=== PATIENT | female | born 1985 | race Caucasian/White ===

== ENCOUNTER 2017-03-22 11:16 | Inpatient (IN) | payer BC, OTHER ==
[2017-03-22 12:20] VITALS: BMI 20.9
--- NOTE | 2017-03-22 12:51 | HP ---
CIWA Score - CIWA Score Nausea/Vomitin Muscle Tremors: 3 Anxiety: 3 Agitation: 3 Paroxysmal Sweats: 2 Orientation: 0-Oriented Tacttile Disturbances: 2-Mild Itch/Numbness/Burn Auditory Disturbances: 2-Mild Harshness/Frighten Visual Disturbances: 0-None Headache: 2-Mild CIWA-Ar Total Score: 20 Admission ROS BHS - HPI Chief Complaint: i need help to stop drinking alcohol Allergies/Adverse Reactions: Allergies Allergy/AdvReac Type Severity Reaction Status Date / Time No Known Allergies Allergy Verified 03/22/17 12:21 History of Present Illness: this 32 years old female with alcohol dependence,seeking detox,with withdrawal symptom,[place]17 drug over dose 02/08/17 herpes of valtrex fx of right elbow s/p surgery on 01/02/17 at [facility] weight loss ptsd,anxiety and depression - Ebola screening Have you traveled outside of the country in the last 21 days: No Have you had contact with anyone from an Ebola affected area: No Have you been sick,other than usual withdrawal symptoms: No - Review of Systems Constitutional: Loss of Appetite, Malaise, Night Sweats, Changes in sleep, Weakness, Unintentional Wgt. Loss EENT: reports: Tearing, Nose Congestion Respiratory: reports: Other (asthma) Cardiac: reports: No Symptoms Reported GI: reports: Diarrhea, Nausea, Abdominal cramping : reports: No Symptoms Reported Musculoskeletal: reports: Back Pain, Muscle Pain Integumentary: reports: Dryness Neuro: reports: Headache, Tremors Endocrine: reports: No Symptoms Reported Hematology: reports: Anemia (on iron) Psychiatric: reports: Depressed (ptsd,anxiety,depression,insomnia) Patient History - Patient Medical History Hx Anemia: Yes (on iron) Hx Asthma: Yes Hx Chronic Obstructive Pulmonary Disease (COPD): No Hx Cancer: No Hx Cardiac Disorders: No Hx Congestive Heart Failure: No Hx Hypertension: No Hx Hypercholesterolemia: No Hx Pacemaker: No HX Cerebrovascular Accident: No Hx Seizures: No Hx Diabetes: No Hx Gastrointestinal Disorders: No Hx Liver Disease: No Hx Genitourinary Disorders: No Hx Sexually Transmitted Disorders: No (genital herpes in the past) Hx Renal Disease (ESRD): No Hx Thyroid Disease: No Hx Human Immunodeficiency Virus (HIV): No (last 2016 negative) Hx Hepatitis C: No Hx Depression: Yes (anxiety) Hx Suicide Attempt: No Hx Bipolar Disorder: No Hx Schizophrenia: No Other Medical History: ptsd,insomnia,no suicidal,no homicidal - Patient Surgical History Past Surgical History: Yes Hx Abdominal Surgery: Yes (ELECTIVE ) Hx Orthopedic Surgery: Yes (R elbow sx 01/04/17) Other Surgical History: Lasix sx both eyes in 06/28 Anesthesia Reaction: No - PPD History Previous Implant?: Yes Documented Results: Negative w/o proof Implanted On Prior [facility] Admission?: No PPD to be Administered?: Yes - Reproductive History Patient is a Female of Child Bearing Age (11 -55 yrs old): Yes Last Menstrual Period: 03/21/17 Patient : No - Smoking Cessation Smoking history: Current every day smoker Have you smoked in the past 12 months: Yes Aproximately how many cigarettes per day: 10 Hx Chewing Tobacco Use: No Initiated information on smoking cessation: Yes 'Breaking Loose' booklet given: 03/22/17 - Substances Abused Alcohol Route: Oral Frequency: Daily Amount used: 2 pints vodka Age of first use: 26 Date of Last Use: 03/22/17 Cocaine Route: Injection Frequency: 1-3 times last 30 days Amount used: $40 Age of first use: 24 Date of Last Use: 03/12/17 Heroin Route: Injection Frequency: 1-3 times last 30 days Amount used: 3 bags Age of first use: 28 Date of Last Use: 03/13/17 Family Disease History - Family Disease History Family Disease History: Other: Father (alcohol) Admission Physical Exam BHS - Vital Signs Vital Signs: Vital Signs - 24 hr 03/22/17 12:18 Temperature 97.6 F Pulse Rate 93 H Respiratory 16 Rate Blood Pressure 133/84 - Physical General Appearance: Yes: Moderate Distress, Tremorous, Irritable, Sweating, Anxious HEENTM: Yes: Normal ENT Inspection, IVY, Pharynx Normal Respiratory: Yes: Lungs Clear, Normal Breath Sounds, No Respiratory Distress Neck: Yes: Within Normal Limits, Supple, Trachea in good position Breast: Yes: Breast Exam Deferred Cardiology: Yes: Within Normal Limits, Regular Rhythm, Regular Rate, S1, S2 Abdominal: Yes: Within Normal Limits, Normal Bowel Sounds, Non Tender, Flat, Soft Genitourinary: Yes: Within Normal Limits Back: Yes: Muscle Spasm Musculoskeletal: Yes: Back pain, Muscle Pain, Other (scar in right elbow with limitatation on meovement) Extremities: Yes: Tremors, Other (scar in right elbow with limitation on movement) Neurological: Yes: Motor Strength 5/5, Normal Mood/Affect Integumentary: Yes: Dry Lymphatic: Yes: Within Normal Limits - Diagnostic (1) Alcohol dependence with uncomplicated withdrawal Current Visit: Yes Status: Acute (2) Cocaine abuse Current Visit: Yes Status: Acute (3) Heroin abuse Current Visit: Yes Status: Acute (4) Syncope Current Visit: Yes Status: Acute (5) Nicotine dependence Current Visit: Yes Status: Chronic (6) Weight loss Current Visit: Yes Status: Acute (7) Hx of herpes genitalis Current Visit: Yes Status: Acute (8) PTSD (post-traumatic stress disorder) Current Visit: Yes Status: Chronic Comment: Self reports. (9) Insomnia secondary to depression with anxiety Current Visit: Yes Status: Acute (10) Anemia Current Visit: Yes Status: Acute (11) Asthma Current Visit: Yes Status: Acute Cleared for Admission [facility] - Detox or Rehab [facility] Level of Care: Medically Managed Detox Regimen/Protocol: Librium [facility] Breath Alcohol Content Breath Alcohol Content: 0.155 Urine Pregancy Test - Result Urine Test Results: Negative- NO Line Present Urine Drug Screen - Results Drug Screen Negative: Yes
[2017-03-22] MEDS ORDERED: NICOTINE POLACRILEX 2 MG GUM BUC PRN (13:06)
[2017-03-22] MEDS ORDERED: ACETAMINOPHEN 325 MG TABLET (FP) PO PRN (13:06)
[2017-03-22] MEDS ORDERED: MAGNESIUM HYDROX 2400MG/30ML ORAL SUSPENSION 30 ML CUP PO PRN (13:06)
[2017-03-22] MEDS ORDERED: MENTHOL/PHENOL 1 EACH UD MM PRN (13:06)
[2017-03-22] MEDS ORDERED: MAG HYDROX/AL HYDROX/SIMETH 30 ML UNIT-DOSE CUP PO PRN (13:06)
[2017-03-22] MEDS ORDERED: P-EPHED 60MG/TRIPROLIDI 2.5MG TABLET PO PRN (13:06)
[2017-03-22] MEDS ORDERED: LOPERAMIDE HCL 2 MG CAPSULE PO PRN (13:06)
[2017-03-22] MEDS ORDERED: hydrOXYzine PAMOATE 50 MG CAPSULE (FP) PO PRN (13:06)
[2017-03-22] MEDS ORDERED: chlordiazePOXIDE HCL 25 MG CAPSULE PO PRN (13:06)
[2017-03-22] MEDS ORDERED: IBUPROFEN 400 MG TABLET (FP) PO PRN (13:06)
[2017-03-22] MEDS ORDERED: guaiFENesin/D-METHORPHAN HB 10 ML UNIT-DOSE CUPS PO PRN (13:06)
[2017-03-22] MEDS ORDERED: MAGNESIUM CITRATE 300 ML BOTTLE PO PRN (13:06)
[2017-03-22] MEDS ORDERED: ALBUTEROL SO4 18 GM HFA INHALER IH PRN (13:10)
[2017-03-22] MEDS ORDERED: chlordiazePOXIDE HCL 25 MG CAPSULE PO ONE (13:50)
[2017-03-22] MEDS: FERROUS SO4 325 MG TABLET (FP) PO SCH ×2 (14:25→22:03)
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
[2017-03-22] MEDS: chlordiazePOXIDE HCL 25 MG CAPSULE PO SCH ×2 (16:57→22:02)
[2017-03-22 17:02] LABS: URINE APPEARANCE CLEAR; URINE BILIRUBIN NEGATIVE (NEGATIVE); URINE BLOOD 3+ (NEGATIVE); URINE COLOR COLORLESS; URINE GLUCOSE (UA) NEGATIVE (NEGATIVE); URINE KETONE NEGATIVE (NEGATIVE); URINE LEUK ESTERASE NEGATIVE (NEGATIVE); URINE NITRITE NEGATIVE (NEGATIVE); URINE PROTEIN NEGATIVE (NEGATIVE); URINE UROBILINOGEN NEGATIVE mg/dL (0.2-1.0)
[2017-03-22 17:06] LABS: EPI CELLS RARE /HPF (FEW); URINE BACTERIA RARE /hpf (NONE SEEN)
--- NOTE | 2017-03-22 17:30 | EKG ---
Test Reason : Blood Pressure : / mmHG Vent. Rate : 083 BPM Atrial Rate : 083 BPM P-R Int : 112 ms QRS Dur : 086 ms QT Int : 370 ms P-R-T Axes : 060 063 059 degrees QTc Int : 434 ms NORMAL SINUS RHYTHM NORMAL ECG NO PREVIOUS ECGS AVAILABLE Confirmed by Stan Russo ([id number]) on 03/22/2017 5:30:25 PM Referred By: Confirmed By:Stan Russo
[2017-03-22] MEDS: THIAMINE HCL 100 MG TABLET (FP) PO SCH (22:02)
[2017-03-22] MEDS: QUEtiapine FUMARATE 50 MG TABLET PO SCH (22:03)
[2017-03-23] MEDS: FERROUS SO4 325 MG TABLET (FP) PO SCH ×3 (05:26→22:10)
[2017-03-23] MEDS: chlordiazePOXIDE HCL 25 MG CAPSULE PO SCH ×4 (05:26→22:10)
--- NOTE | 2017-03-23 09:27 | PN ---
S CIWA - CIWA Score Nausea/Vomitin-Mild Nausea/No Vomiting Muscle Tremors: 4-Moderate,w/Arms Extend Anxiety: 4-Mod. Anxious/Guarded Agitation: 4-Moderately Restless Paroxysmal Sweats: 1-Minimal Palms Moist Orientation: 0-Oriented Tacttile Disturbances: 1-Very Mild Itch/Numbness Auditory Disturbances: 0-None Visual Disturbances: 0-None Headache: 1-Very Mild CIWA-Ar Total Score: 16 BHS Progress Note (SOAP) Subjective: sweat tremor anxiety agitation irritable GI upset Objective: 03/23/17 09:25 Vital Signs Temperature 97.6 F 03/23/17 06:23 Pulse Rate 81 03/23/17 06:23 Respiratory Rate 18 03/23/17 06:23 Blood Pressure 148/83 03/23/17 06:23 O2 Sat by Pulse Oximetry (%) Laboratory Last Values Urine Color Colorless 03/22/17 15:00 Urine Appearance Clear 03/22/17 15:00 Urine pH 6.0 (5.0-8.0) 03/22/17 15:00 Ur Specific [place] 1.004 (1.001-1.035) 03/22/17 15:00 Urine Protein Negative (NEGATIVE) 03/22/17 15:00 Urine Glucose (UA) Negative (NEGATIVE) 03/22/17 15:00 Urine Ketones Negative (NEGATIVE) 03/22/17 15:00 Urine Blood 3+ (NEGATIVE) H 03/22/17 15:00 Urine Nitrite Negative (NEGATIVE) 03/22/17 15:00 Urine Bilirubin Negative (NEGATIVE) 03/22/17 15:00 Urine Urobilinogen Negative mg/dL (0.2-1.0) 03/22/17 15:00 Ur Leukocyte Esterase Negative (NEGATIVE) 03/22/17 15:00 Urine WBC (Auto) 2 /hpf (3-5) 03/22/17 15:00 Urine RBC (Auto) <1 /hpf (0-3) 03/22/17 15:00 Ur Epithelial Cells Rare /HPF (FEW) 03/22/17 15:00 Urine Bacteria Rare /hpf (NONE SEEN) 03/22/17 15:00 HIV 1&2 Antibody Screen Negative 03/22/17 13:00 HIV P24 Antigen Negative 03/22/17 13:00 lab noted Assessment: 03/23/17 09:26 withdrawal sx Plan: continue detox
[2017-03-23] MEDS: PRENATAL VITAMINS W/ FOLIC ACID TABLET (FP) PO SCH (10:27)
[2017-03-23] MEDS: valACYclovir HCL 500 MG TABLET (FP) PO SCH (10:27)
[2017-03-23] MEDS: FLUoxetine HCL 20 MG CAPSULE (FP) PO SCH (10:27)
[2017-03-23 10:28] LABS: HEMATOCRIT 41.2 % (32.4-45.2); HEMOGLOBIN 13.6 GM/dL (10.7-15.3); MCH 28.5 pg (25.7-33.7); MCHC 32.9 g/dl (32.0-36.0); MEAN CELL VOLUME 86.5 fl (80-96); PLATELET COUNT 408 K/MM3 (134-434); RBC 4.77 M/mm3 (3.60-5.2); RDW 13.4 % (11.6-15.6)
[2017-03-23 10:38] LABS: ALBUMIN 3.7 g/dl (3.4-5.0); ANION GAP 10 (8-16); BLOOD UREA NITROGEN 16 mg/dL (7-18); CALCIUM 8.4 mg/dL (8.5-10.1); CHLORIDE 104 mmol/L (98-107); CO2 25 mmol/L (21-32); CREATININE 0.7 mg/dL (0.55-1.02); GLUCOSE,RANDOM 80 mg/dL (74-106); POTASSIUM 4.3 mmol/L (3.5-5.1); SGOT/AST 13 U/L (15-37); SGPT/ALT 26 U/L (12-78); SODIUM 139 mmol/L (136-145)
[2017-03-23 10:40] LABS: ALK PHOS 99 U/L (45-117); BILIRUBIN,TOTAL 0.8 mg/dL (0.2-1.0); TOT PROT 8.1 g/dl (6.4-8.2)
[2017-03-23] MEDS: NICOTINE 14 MG/24 HOURS TOPICAL PATCH TD SCH (10:59)
[2017-03-23] MEDS: QUEtiapine FUMARATE 50 MG TABLET PO SCH (22:10)
[2017-03-23] MEDS: THIAMINE HCL 100 MG TABLET (FP) PO SCH (22:10)
[2017-03-24] MEDS: chlordiazePOXIDE HCL 25 MG CAPSULE PO SCH ×2 (05:18→10:33)
[2017-03-24] MEDS: FERROUS SO4 325 MG TABLET (FP) PO SCH ×3 (05:18→22:15)
--- NOTE | 2017-03-24 09:51 | PN ---
S CIWA - CIWA Score Nausea/Vomitin-Mild Nausea/No Vomiting Muscle Tremors: 4-Moderate,w/Arms Extend Anxiety: 3 Agitation: 3 Paroxysmal Sweats: 1-Minimal Palms Moist Orientation: 0-Oriented Tacttile Disturbances: 0-None Auditory Disturbances: 0-None Visual Disturbances: 0-None Headache: 0-None Present CIWA-Ar Total Score: 12 BHS Progress Note (SOAP) Subjective: sweat tremor anxiety irritable agitation Objective: 03/24/17 09:54 Vital Signs Temperature 98.1 F 03/24/17 06:21 Pulse Rate 72 03/24/17 06:21 Respiratory Rate 18 03/24/17 06:21 Blood Pressure 126/76 03/24/17 06:21 O2 Sat by Pulse Oximetry (%) Laboratory Last Values WBC 8.0 K/mm3 (4.0-10.0) 03/23/17 06:00 RBC 4.77 M/mm3 (3.60-5.2) 03/23/17 06:00 Hgb 13.6 GM/dL (10.7-15.3) 03/23/17 06:00 Hct 41.2 % (32.4-45.2) 03/23/17 06:00 MCV 86.5 fl (80-96) 03/23/17 06:00 MCH 28.5 pg (25.7-33.7) 03/23/17 06:00 MCHC 32.9 g/dl (32.0-36.0) 03/23/17 06:00 RDW 13.4 % (11.6-15.6) 03/23/17 06:00 Plt Count 408 K/MM3 (134-434) 03/23/17 06:00 MPV 8.0 fl (7.5-11.1) 03/23/17 06:00 Sodium 139 mmol/L (136-145) 03/23/17 06:00 Potassium 4.3 mmol/L (3.5-5.1) 03/23/17 06:00 Chloride 104 mmol/L (98-107) 03/23/17 06:00 Carbon Dioxide 25 mmol/L (21-32) 03/23/17 06:00 Anion Gap 10 (8-16) 03/23/17 06:00 BUN 16 mg/dL (7-18) 03/23/17 06:00 Creatinine 0.7 mg/dL (0.55-1.02) 03/23/17 06:00 Creat Clearance w eGFR > 60 (>60) 03/23/17 06:00 Random Glucose 80 mg/dL (74-106) 03/23/17 06:00 Calcium 8.4 mg/dL (8.5-10.1) L 03/23/17 06:00 Total Bilirubin 0.8 mg/dL (0.2-1.0) 03/23/17 06:00 AST 13 U/L (15-37) L 03/23/17 06:00 ALT 26 U/L (12-78) 03/23/17 06:00 Alkaline Phosphatase 99 U/L (45-117) 03/23/17 06:00 Total Protein 8.1 g/dl (6.4-8.2) 03/23/17 06:00 Albumin 3.7 g/dl (3.4-5.0) 03/23/17 06:00 Urine Color Colorless 03/22/17 15:00 Urine Appearance Clear 03/22/17 15:00 Urine pH 6.0 (5.0-8.0) 03/22/17 15:00 Ur Specific [place] 1.004 (1.001-1.035) 03/22/17 15:00 Urine Protein Negative (NEGATIVE) 03/22/17 15:00 Urine Glucose (UA) Negative (NEGATIVE) 03/22/17 15:00 Urine Ketones Negative (NEGATIVE) 03/22/17 15:00 Urine Blood 3+ (NEGATIVE) H 03/22/17 15:00 Urine Nitrite Negative (NEGATIVE) 03/22/17 15:00 Urine Bilirubin Negative (NEGATIVE) 03/22/17 15:00 Urine Urobilinogen Negative mg/dL (0.2-1.0) 03/22/17 15:00 Ur Leukocyte Esterase Negative (NEGATIVE) 03/22/17 15:00 Urine WBC (Auto) 2 /hpf (3-5) 03/22/17 15:00 Urine RBC (Auto) <1 /hpf (0-3) 03/22/17 15:00 Ur Epithelial Cells Rare /HPF (FEW) 03/22/17 15:00 Urine Bacteria Rare /hpf (NONE SEEN) 03/22/17 15:00 RPR Titer Nonreactive (NONREACTIVE) 03/23/17 06:00 HIV 1&2 Antibody Screen Negative 03/22/17 13:00 HIV P24 Antigen Negative 03/22/17 13:00 lab noted Assessment: 03/24/17 09:55 withdrawal sx Plan: continue detox
[2017-03-24] MEDS: FLUoxetine HCL 20 MG CAPSULE (FP) PO SCH (10:33)
[2017-03-24] MEDS: PRENATAL VITAMINS W/ FOLIC ACID TABLET (FP) PO SCH (10:33)
[2017-03-24] MEDS: NICOTINE 14 MG/24 HOURS TOPICAL PATCH TD SCH (10:33)
[2017-03-24] MEDS: valACYclovir HCL 500 MG TABLET (FP) PO SCH (10:34)
[2017-03-24] MEDS: chlordiazePOXIDE 5 MG CAPSULE PO SCH ×2 (17:29→22:15)
[2017-03-24] MEDS: THIAMINE HCL 100 MG TABLET (FP) PO SCH (22:15)
[2017-03-24] MEDS: QUEtiapine FUMARATE 50 MG TABLET PO SCH (22:15)
[2017-03-25] MEDS ORDERED: chlordiazePOXIDE HCL 10 MG CAPSULE PO SCH ×2 (05:00→17:00)
[2017-03-25] MEDS: FERROUS SO4 325 MG TABLET (FP) PO SCH (05:51)
--- NOTE | 2017-03-25 08:53 | DS ---
[facility] Detox Discharge Summary Admission Date: 03/22/17 Discharge Date: 03/25/17 - History Present History: Alcohol Dependence, Cocaine Dependence - Physical Exam Results Vital Signs: Vital Signs Temperature 97.7 F 03/25/17 06:12 Pulse Rate 77 03/25/17 06:12 Respiratory Rate 18 03/25/17 06:12 Blood Pressure 107/72 03/25/17 06:12 O2 Sat by Pulse Oximetry (%) - Treatment Hospital Course: Detox Protocol Followed, Detoxed Safely, Responded well, Discharged Condition Good, Rehab Referral Accepted - Medication Discharge Medications: Ambulatory Orders Ferrous Sulfate 325 mg PO TID 03/22/17 Valacyclovir HCl [Valtrex -] 500 mg PO DAILY 03/22/17 - Diagnosis (1) Alcohol dependence with uncomplicated withdrawal Current Visit: Yes Status: Chronic (2) Anemia Current Visit: Yes Status: Chronic (3) Asthma Current Visit: Yes Status: Chronic Qualifiers: Asthma severity: mild (4) Cocaine abuse Current Visit: Yes Status: Acute (5) Heroin abuse Current Visit: Yes Status: Acute (6) Hx of herpes genitalis Current Visit: Yes Status: Acute (7) Insomnia secondary to depression with anxiety Current Visit: Yes Status: Acute (8) Syncope Current Visit: Yes Status: Acute (9) Weight loss Current Visit: Yes Status: Acute (10) MDD (major depressive disorder) Current Visit: Yes Status: Chronic (11) Nicotine dependence Current Visit: Yes Status: Chronic Qualifiers: Nicotine product type: cigarettes Substance use status: uncomplicated Qualified Code(s): F17.210 - Nicotine dependence, cigarettes, uncomplicated (12) PTSD (post-traumatic stress disorder) Current Visit: Yes Status: Chronic (13) Facial contusion Current Visit: No Status: Acute (14) Neck muscle strain Current Visit: No Status: Acute - AMA Did Patient Leave Against Medical Advice: No
[2017-03-25] MEDS: NICOTINE 14 MG/24 HOURS TOPICAL PATCH TD SCH (09:23)
[2017-03-25] MEDS: valACYclovir HCL 500 MG TABLET (FP) PO SCH (09:23)
[2017-03-25] MEDS: FLUoxetine HCL 20 MG CAPSULE (FP) PO SCH (09:23)
[2017-03-25] MEDS: PRENATAL VITAMINS W/ FOLIC ACID TABLET (FP) PO SCH (09:23)
[2017-03-25 11:50] VITALS: BP 138/83; PULSE 95; TEMP 98.4
== END 2017-03-25 11:30 | disposition home or self-care (01) | DRG 897 ==
LOC: YASAS 11:16 → Y6N 12:39
PROVIDERS: ADMIT Internal Medicine; ATTEND Internal Medicine
PROC: HZ2ZZZZ Detoxification Services for Substance Abuse Treatment (ICD-10-PCS; principal; 2017-03-22)
DX: F10.230 Alcohol dependence with withdrawal, uncomplicated (principal); F33.9 Major depressive disorder, recurrent, unspecified; F11.10 Opioid abuse, uncomplicated; F14.10 Cocaine abuse, uncomplicated; F17.210 Nicotine dependence, cigarettes, uncomplicated; F43.10 Post-traumatic stress disorder, unspecified; F51.05 Insomnia due to other mental disorder; D64.9 Anemia, unspecified; J45.909 Unspecified asthma, uncomplicated; Z87.42 Personal history of other diseases of the female genital tract; Z86.79 Personal history of other diseases of the circulatory system; Z87.898 Personal history of other specified conditions
CPT/HCPCS: 36415; 80053; 81003; 81015; 85027; 86593; 87389; 93005; 93010

== ENCOUNTER 2017-05-27 10:27 | Inpatient (IN) | payer BC, OTHER ==
--- NOTE | 2017-05-27 13:05 | HP ---
COWS - Scale Resting Pulse: 1= RI 81-100 Sweatin= Chills/Flushing Restless Observation: 1= Difficult to Sit Still Pupil Size: 0= Normal to Room Light Bone or Joint Aches: 2= Severe Diffuse Aches Runny Nose/ Eye Tearin= Nasal Congestion GI Upset > 30mins: 2= Nausea/Diarrhea Tremor Observation: 2= Slight Tremor Visible Yawning Observation: 1= 1-2x During Session Anxiety or Irritability: 2=Irritable/Anxious Goose Flesh Skin: 3=Piloerection COWS Score: 16 CIWA Score - CIWA Score Nausea/Vomitin Muscle Tremors: 2 Anxiety: 3 Agitation: 0-Normal Activity Paroxysmal Sweats: 3 Orientation: 0-Oriented Tacttile Disturbances: 2-Mild Itch/Numbness/Burn Auditory Disturbances: 2-Mild Harshness/Frighten Visual Disturbances: 2-Mild Sensitivity Headache: 0-None Present CIWA-Ar Total Score: 19 Admission ROS BHS - HPI Chief Complaint: "I can't stop using Heroin and Alcohol because I get sick when I do and I want to stop." Patient is here to Detox from Alcohol and Heroin. Allergies/Adverse Reactions: Allergies Allergy/AdvReac Type Severity Reaction Status Date / Time No Known Allergies Allergy Verified 05/27/17 11:47 History of Present Illness: Patient is a 32 YO female here to Detox from Heroin and Alcohol. Patient had one previous Detox admission at [facility] in 03/2017. Patient had a Detox at [facility]) (03/2014) and Rehab [facility] ([place], [place]) in 03/2107, at [facility]) in 2014, and at [facility]) in 2016. Exam Limitations: No Limitations - Ebola screening Have you traveled outside of the country in the last 21 days: No (N) Have you had contact with anyone from an Ebola affected area: No Have you been sick,other than usual withdrawal symptoms: No Do you have a fever: No - Review of Systems Constitutional: Chills, Diaphoresis, Loss of Appetite, Malaise, Night Sweats, Changes in sleep, Unintentional Wgt. Loss (Lost aspprox. 10 lbs in last 1 month. ) EENT: reports: Tearing, Nose Congestion, Sinus Pressure Respiratory: reports: No Symptoms reported Cardiac: reports: No Symptoms Reported GI: reports: Constipated, Nausea, Poor Appetite, Vomiting, Abdominal cramping : reports: No Symptoms Reported Musculoskeletal: reports: No Symptoms Reported Integumentary: reports: No Symptoms Reported Neuro: reports: Tremors Endocrine: reports: No Symptoms Reported Hematology: reports: Anemia (Iron-Deficiency type.), Easy Bruising Psychiatric: reports: Judgement Intact, Mood/Affect Appropiate, Orientated x3, Anxious, Depressed (On meds.) Other Systems: Reviewed and Negative Patient History - Patient Medical History Hx Anemia: Yes (on iron) Hx Asthma: No Hx Chronic Obstructive Pulmonary Disease (COPD): No Hx Cancer: No Hx Cardiac Disorders: No Hx Congestive Heart Failure: No Hx Hypertension: No Hx Hypercholesterolemia: No Hx Pacemaker: No HX Cerebrovascular Accident: No Hx Seizures: No Hx Diabetes: No Hx Gastrointestinal Disorders: No Hx Liver Disease: No Hx Genitourinary Disorders: No Hx Sexually Transmitted Disorders: Yes (genital herpes; Valtrex inrtermittently in past.) Hx Renal Disease (ESRD): No Hx Thyroid Disease: No Hx Human Immunodeficiency Virus (HIV): No (last 2017 negative) Hx Hepatitis C: No (Last tested: 12/2016: NEGATIVE.) Hx Depression: Yes (On meds.) Hx Suicide Attempt: No (PATIENT DENIES CURRENT SI / HI.) Hx Bipolar Disorder: No Hx Schizophrenia: No Other Medical History: DENIES. - Patient Surgical History Past Surgical History: Yes Hx Neurologic Surgery: No Hx Cataract Extraction: No Hx Cardiac Surgery: No Hx Lung Surgery: No Hx Breast Surgery: No Hx Breast Biopsy: No Hx Abdominal Surgery: Yes (ELECTIVE , 2003.) Hx Appendectomy: No Hx Cholecystectomy: No Hx Genitourinary Surgery: No Hx Section: No Hx Orthopedic Surgery: Yes (R elbow sx 01/04/17) Other Surgical History: Lasik sx both eyes in 06/28 Anesthesia Reaction: No - PPD History Previous Implant?: Yes Documented Results: Negative w/proof Implanted On Prior [facility] Admission?: Yes Date: 03/24/17 Results: 0 mm PPD to be Administered?: No - Reproductive History Patient is a Female of Child Bearing Age (11 -55 yrs old): Yes Last Menstrual Period: 05/01/17 Patient : No - Smoking Cessation Smoking history: Current every day smoker Have you smoked in the past 12 months: Yes Aproximately how many cigarettes per day: 10 Cigars Per Day: 0 Hx Chewing Tobacco Use: No Initiated information on smoking cessation: Yes 'Breaking Loose' booklet given: 05/27/17 (GIVEN TO PATIENT.) - Substance & Tx. History Hx Alcohol Use: Yes Hx Substance Use: Yes Substance Use Type: Alcohol, Cocaine, Heroin Hx Substance Use Treatment: Yes (Previous DEtox at [facility] (03/2017); Rehab at [facility] in 03/2017.) - Substances Abused Heroin Route: Injection Frequency: Daily Amount used: 10 bags Age of first use: 28 Date of Last Use: 05/26/17 Cocaine Route: Injection Frequency: 3-6 times per week Amount used: $60-75 Age of first use: 25 Date of Last Use: 05/27/17 Alcohol-vodka Route: Oral Frequency: 3-6 times per week Amount used: 1 pt. Age of first use: 12 Date of Last Use: 05/27/17 Family Disease History - Family Disease History Family Disease History: Other: Father (alcohol) Admission Physical Exam S - Vital Signs Vital Signs: Vital Signs - 24 hr 05/27/17 11:48 Temperature 97.8 F Pulse Rate 83 Respiratory 20 Rate Blood Pressure 115/75 - Physical General Appearance: Yes: No Apparent Distress, Nourished, Appropriately Dressed , Tremorous, Anxious HEENTM: Yes: Hearing grossly Normal, Normocephalic, Normal Voice, IVY, Pharynx Normal Respiratory: Yes: Chest Non-Tender, Lungs Clear, No Respiratory Distress, No Accessory Muscle Use Neck: Yes: No masses,lesions,Nodules, Supple, Trachea in good position Breast: Yes: Breast Exam Deferred Cardiology: Yes: Regular Rhythm, Regular Rate, S1, S2 Abdominal: Yes: Normal Bowel Sounds, Non Tender, Flat, Soft Genitourinary: Yes: Within Normal Limits Back: Yes: Normal Inspection Musculoskeletal: Yes: full range of Motion, Gait Steady Extremities: Yes: Normal Capillary Refill, Normal Range of Motion, Non-Tender, Tremors Neurological: Yes: Fully Oriented, Alert, Normal Mood/Affect, Normal Response Integumentary: Yes: Normal Color, Dry, Warm, Track [place] (Noted on Bilateral Forearms and Hands. No signs of infection noted at affected sites.) Lymphatic: Yes: Within Normal Limits - Diagnostic (1) Opioid dependence with withdrawal Current Visit: Yes Status: Acute (2) Cocaine dependence, uncomplicated Current Visit: Yes Status: Acute (3) History of depression Current Visit: Yes Status: Chronic (4) History of anemia Current Visit: Yes Status: Chronic (5) Hx of herpes genitalis Current Visit: Yes Status: Chronic (6) Alcohol dependence with uncomplicated withdrawal Current Visit: Yes Status: Acute (7) Nicotine dependence Current Visit: Yes Status: Chronic Qualifiers: Nicotine product type: cigarettes Substance use status: uncomplicated Qualified Code(s): F17.210 - Nicotine dependence, cigarettes, uncomplicated Cleared for Admission [facility] - Detox or Rehab [facility] Level of Care: Medically Managed Detox Regimen/Protocol: Methadone/Librium S Breath Alcohol Content Breath Alcohol Content: 0.123 Urine Pregancy Test - Result Urine Test Results: Negative- NO Line Present Urine Drug Screen - Results Drug Screen Negative: No Urine Drug Screen Results: ARISSA-Cocaine, OPI-Opiates
[2017-05-27] MEDS ORDERED: IBUPROFEN 400 MG TABLET (FP) PO PRN (13:36)
[2017-05-27] MEDS ORDERED: ACETAMINOPHEN 325 MG TABLET (FP) PO PRN (13:36)
[2017-05-27] MEDS ORDERED: guaiFENesin/D-METHORPHAN HB 10 ML UNIT-DOSE CUPS PO PRN (13:36)
[2017-05-27] MEDS ORDERED: MAGNESIUM HYDROX 2400MG/30ML ORAL SUSPENSION 30 ML CUP PO PRN (13:36)
[2017-05-27] MEDS ORDERED: MAGNESIUM CITRATE 300 ML BOTTLE PO PRN (13:36)
[2017-05-27] MEDS ORDERED: P-EPHED 60MG/TRIPROLIDI 2.5MG TABLET PO PRN (13:36)
[2017-05-27] MEDS ORDERED: MENTHOL/PHENOL 1 EACH UD MM PRN (13:36)
[2017-05-27] MEDS ORDERED: chlordiazePOXIDE HCL 25 MG CAPSULE PO PRN (13:36)
[2017-05-27] MEDS ORDERED: MAG HYDROX/AL HYDROX/SIMETH 30 ML UNIT-DOSE CUP PO PRN (13:36)
[2017-05-27] MEDS ORDERED: LOPERAMIDE HCL 2 MG CAPSULE PO PRN (13:36)
[2017-05-27] MEDS ORDERED: METHADONE HCL 10 MG TABLET (FOR DETOX USE ONLY) PO ONE ×2 (14:00→23:00)
[2017-05-27] MEDS ORDERED: chlordiazePOXIDE HCL 25 MG CAPSULE PO ONE (14:00)
[2017-05-27] MEDS: BACITRACIN 0.9 GM PACKET TP SCH ×2 (14:19→22:38)
[2017-05-27] MEDS: NICOTINE 21 MG/24 HOURS TOPICAL PATCH TD SCH (14:19)
[2017-05-27] MEDS: chlordiazePOXIDE HCL 25 MG CAPSULE PO SCH ×2 (16:50→22:38)
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
[2017-05-27] MEDS: THIAMINE HCL 100 MG TABLET (FP) PO SCH (22:38)
[2017-05-27] MEDS: QUEtiapine FUMARATE 50 MG TABLET PO SCH (22:38)
[2017-05-27] MEDS: NICOTINE POLACRILEX 2 MG GUM BUC PRN (22:42)
[2017-05-27 23:40] LABS: URINE APPEARANCE CLEAR; URINE BILIRUBIN NEGATIVE (<2.0 mg/dL); URINE BLOOD NEGATIVE (NEGATIVE); URINE COLOR COLORLESS; URINE GLUCOSE (UA) NEGATIVE (NEGATIVE); URINE KETONE NEGATIVE (NEGATIVE); URINE LEUK ESTERASE NEGATIVE (NEGATIVE); URINE NITRITE NEGATIVE (NEGATIVE); URINE PROTEIN NEGATIVE (NEGATIVE); URINE UROBILINOGEN NEGATIVE mg/dL (0.2-1.0)
[2017-05-28] MEDS: chlordiazePOXIDE HCL 25 MG CAPSULE PO SCH ×4 (06:19→22:33)
[2017-05-28] MEDS ORDERED: METHADONE HCL 10 MG TABLET (FOR DETOX USE ONLY) PO SCH (10:00)
[2017-05-28 10:28] LABS: HEMATOCRIT 38.5 % (32.4-45.2); HEMOGLOBIN 12.7 GM/dL (10.7-15.3); MCH 29.3 pg (25.7-33.7); MEAN CELL VOLUME 88.8 fl (80-96); MEAN PLT VOLUME 10.1 fl (7.5-11.1); PLATELET COUNT 338 K/MM3 (134-434); RBC 4.34 M/mm3 (3.60-5.2); RDW 14.4 % (11.6-15.6); WHITE BLOOD COUNT 4.6 K/mm3 (4.0-10.0)
[2017-05-28 10:43] LABS: CHLORIDE 107 mmol/L (98-107); POTASSIUM 3.4 mmol/L (3.5-5.1); SODIUM 143 mmol/L (136-145)
[2017-05-28 10:52] LABS: ALBUMIN 3.7 g/dl (3.4-5.0); ALK PHOS 77 U/L (45-117); ANION GAP 8 (8-16); BILIRUBIN,TOTAL 0.4 mg/dL (0.2-1.0); BLOOD UREA NITROGEN 8 mg/dL (7-18); CO2 28 mmol/L (21-32); CREATININE 0.8 mg/dL (0.55-1.02); GLUCOSE,RANDOM 92 mg/dL (74-106); SGOT/AST 18 U/L (15-37); SGPT/ALT 21 U/L (12-78); TOT PROT 7.5 g/dl (6.4-8.2)
[2017-05-28] MEDS: NICOTINE 21 MG/24 HOURS TOPICAL PATCH TD SCH (11:02)
[2017-05-28] MEDS: PRENATAL VITAMINS W/ FOLIC ACID TABLET (FP) PO SCH (11:03)
[2017-05-28] MEDS: FLUoxetine HCL 20 MG CAPSULE (FP) PO SCH (11:03)
[2017-05-28] MEDS: BACITRACIN 0.9 GM PACKET TP SCH ×2 (11:03→22:33)
[2017-05-28] MEDS: NICOTINE POLACRILEX 2 MG GUM BUC PRN ×2 (11:07→22:33)
--- NOTE | 2017-05-28 16:30 | PN ---
S CIWA - CIWA Score Nausea/Vomitin Muscle Tremors: 3 Anxiety: 3 Agitation: 2 Paroxysmal Sweats: 1-Minimal Palms Moist Orientation: 0-Oriented Tacttile Disturbances: 1-Very Mild Itch/Numbness Auditory Disturbances: 1-Very Mild Visual Disturbances: 0-None Headache: 2-Mild CIWA-Ar Total Score: 16 BHS COWS - Scale Resting Pulse: 0= [place] 80 or Below Sweatin= Chills/Flushing Restless Observation: 3= Extraneous Movement Pupil Size: 1= Pupils >than Normal Bone or Joint Aches: 2= Severe Diffuse Aches Runny Nose/ Eye Tearin= Nasal Congestion GI Upset > 30mins: 2= Nausea/Diarrhea Tremor Observation of Outstretched Hands: 2= Slight Tremor Visible Yawning Observation: 1= 1-2x During Session Anxiety or Irritability: 2=Irritable/Anxious Goose Flesh Skin: 0=Smooth Skin COWS Score: 15 BHS Progress Note (SOAP) Subjective: ALERT,IRRITABLE,ANXIOUS,INTERRUPTED SLEEP,TREMOR,PAIN IN THE BODY AND BACK Objective: 05/28/17 16:28 Vital Signs Temperature 98.1 F 05/28/17 16:04 Pulse Rate 71 05/28/17 16:04 Respiratory Rate 19 05/28/17 16:04 Blood Pressure 119/65 05/28/17 16:04 O2 Sat by Pulse Oximetry (%) EKG NSR NO CHEST PAIN,NO SOB,NO DIZZINESS Vital Signs Temperature 98.1 F 05/28/17 16:04 Pulse Rate 71 05/28/17 16:04 Respiratory Rate 19 05/28/17 16:04 Blood Pressure 119/65 05/28/17 16:04 O2 Sat by Pulse Oximetry (%) Laboratory Last Values WBC 4.6 K/mm3 (4.0-10.0) D 05/28/17 06:20 RBC 4.34 M/mm3 (3.60-5.2) 05/28/17 06:20 Hgb 12.7 GM/dL (10.7-15.3) 05/28/17 06:20 Hct 38.5 % (32.4-45.2) 05/28/17 06:20 MCV 88.8 fl (80-96) 05/28/17 06:20 MCH 29.3 pg (25.7-33.7) 05/28/17 06:20 MCHC 33.0 g/dl (32.0-36.0) 05/28/17 06:20 RDW 14.4 % (11.6-15.6) 05/28/17 06:20 Plt Count 338 K/MM3 (134-434) 05/28/17 06:20 MPV 10.1 fl (7.5-11.1) D 05/28/17 06:20 Sodium 143 mmol/L (136-145) 05/28/17 06:20 Potassium 3.4 mmol/L (3.5-5.1) L 05/28/17 06:20 Chloride 107 mmol/L (98-107) 05/28/17 06:20 Carbon Dioxide 28 mmol/L (21-32) 05/28/17 06:20 Anion Gap 8 (8-16) 05/28/17 06:20 BUN 8 mg/dL (7-18) 05/28/17 06:20 Creatinine 0.8 mg/dL (0.55-1.02) 05/28/17 06:20 Creat Clearance w eGFR > 60 (>60) 05/28/17 06:20 Random Glucose 92 mg/dL (74-106) 05/28/17 06:20 Calcium 9.0 mg/dL (8.5-10.1) 05/28/17 06:20 Total Bilirubin 0.4 mg/dL (0.2-1.0) D 05/28/17 06:20 AST 18 U/L (15-37) 05/28/17 06:20 ALT 21 U/L (12-78) 05/28/17 06:20 Alkaline Phosphatase 77 U/L (45-117) 05/28/17 06:20 Total Protein 7.5 g/dl (6.4-8.2) 05/28/17 06:20 Albumin 3.7 g/dl (3.4-5.0) 05/28/17 06:20 Urine Color Colorless 05/27/17 19:40 Urine Appearance Clear 05/27/17 19:40 Urine pH 6.0 (5.0-8.0) 05/27/17 19:40 Ur Specific [place] 1.003 (1.001-1.035) 05/27/17 19:40 Urine Protein Negative (NEGATIVE) 05/27/17 19:40 Urine Glucose (UA) Negative (NEGATIVE) 05/27/17 19:40 Urine Ketones Negative (NEGATIVE) 05/27/17 19:40 Urine Blood Negative (NEGATIVE) 05/27/17 19:40 Urine Nitrite Negative (NEGATIVE) 05/27/17 19:40 Urine Bilirubin Negative (<2.0 mg/dL) 05/27/17 19:40 Urine Urobilinogen Negative mg/dL (0.2-1.0) 05/27/17 19:40 Ur Leukocyte Esterase Negative (NEGATIVE) 05/27/17 19:40 RPR Titer Nonreactive (NONREACTIVE) 05/28/17 06:20 HIV 1&2 Antibody Screen Negative 05/27/17 12:45 HIV P24 Antigen Negative 05/27/17 12:45 Assessment: 05/28/17 16:29 WITHDRAWAL SYMPTOM Plan: CONTINUE DETOX,K IS 3.4 HYPOKALEMIA,K DUR 20 MEQ PO DAILY
[2017-05-28] MEDS: THIAMINE HCL 100 MG TABLET (FP) PO SCH (22:33)
[2017-05-28] MEDS: QUEtiapine FUMARATE 50 MG TABLET PO SCH (22:33)
[2017-05-28] MEDS: MELATONIN 5 MG TABLETS PO PRN (22:34)
[2017-05-29] MEDS: chlordiazePOXIDE HCL 25 MG CAPSULE PO SCH ×2 (06:09→11:08)
[2017-05-29] MEDS: METHADONE HCL 5 MG TABLET (FOR DETOX USE ONLY) PO SCH (11:08)
[2017-05-29] MEDS: BACITRACIN 0.9 GM PACKET TP SCH ×2 (11:08→22:32)
[2017-05-29] MEDS: PRENATAL VITAMINS W/ FOLIC ACID TABLET (FP) PO SCH (11:09)
[2017-05-29] MEDS: NICOTINE 21 MG/24 HOURS TOPICAL PATCH TD SCH (11:09)
[2017-05-29] MEDS: NICOTINE POLACRILEX 2 MG GUM BUC PRN ×4 (11:15→22:34)
[2017-05-29] MEDS: FLUoxetine HCL 20 MG CAPSULE (FP) PO SCH (11:36)
--- NOTE | 2017-05-29 12:52 | PN ---
[facility] CIWA - CIWA Score Nausea/Vomitin-Mild Nausea/No Vomiting Muscle Tremors: 4-Moderate,w/Arms Extend Anxiety: 3 Agitation: 3 Paroxysmal Sweats: 1-Minimal Palms Moist Orientation: 0-Oriented Tacttile Disturbances: 1-Very Mild Itch/Numbness Auditory Disturbances: 0-None Visual Disturbances: 0-None Headache: 1-Very Mild CIWA-Ar Total Score: 14 BHS COWS - Scale Resting Pulse: 0= [place] 80 or Below Sweatin= Chills/Flushing Restless Observation: 1= Difficult to Sit Still Pupil Size: 0= Normal to Room Light Bone or Joint Aches: 2= Severe Diffuse Aches Runny Nose/ Eye Tearin= Runny Nose/Eyes GI Upset > 30mins: 2= Nausea/Diarrhea Tremor Observation of Outstretched Hands: 2= Slight Tremor Visible Yawning Observation: 2= >3x During Session Anxiety or Irritability: 2=Irritable/Anxious Goose Flesh Skin: 0=Smooth Skin COWS Score: 14 [facility] Progress Note (SOAP) Subjective: joint pain muscle ache sweat tremor gi distress trouble sleeping Objective: 05/29/17 12:51 Vital Signs Temperature 97.2 F L 05/29/17 12:17 Pulse Rate 76 05/29/17 12:17 Respiratory Rate 18 05/29/17 12:17 Blood Pressure 102/74 05/29/17 12:17 O2 Sat by Pulse Oximetry (%) Laboratory Last Values WBC 4.6 K/mm3 (4.0-10.0) D 05/28/17 06:20 RBC 4.34 M/mm3 (3.60-5.2) 05/28/17 06:20 Hgb 12.7 GM/dL (10.7-15.3) 05/28/17 06:20 Hct 38.5 % (32.4-45.2) 05/28/17 06:20 MCV 88.8 fl (80-96) 05/28/17 06:20 MCH 29.3 pg (25.7-33.7) 05/28/17 06:20 MCHC 33.0 g/dl (32.0-36.0) 05/28/17 06:20 RDW 14.4 % (11.6-15.6) 05/28/17 06:20 Plt Count 338 K/MM3 (134-434) 05/28/17 06:20 MPV 10.1 fl (7.5-11.1) D 05/28/17 06:20 Sodium 143 mmol/L (136-145) 05/28/17 06:20 Potassium 3.4 mmol/L (3.5-5.1) L 05/28/17 06:20 Chloride 107 mmol/L (98-107) 05/28/17 06:20 Carbon Dioxide 28 mmol/L (21-32) 05/28/17 06:20 Anion Gap 8 (8-16) 05/28/17 06:20 BUN 8 mg/dL (7-18) 05/28/17 06:20 Creatinine 0.8 mg/dL (0.55-1.02) 05/28/17 06:20 Creat Clearance w eGFR > 60 (>60) 05/28/17 06:20 Random Glucose 92 mg/dL (74-106) 05/28/17 06:20 Calcium 9.0 mg/dL (8.5-10.1) 05/28/17 06:20 Total Bilirubin 0.4 mg/dL (0.2-1.0) D 05/28/17 06:20 AST 18 U/L (15-37) 05/28/17 06:20 ALT 21 U/L (12-78) 05/28/17 06:20 Alkaline Phosphatase 77 U/L (45-117) 05/28/17 06:20 Total Protein 7.5 g/dl (6.4-8.2) 05/28/17 06:20 Albumin 3.7 g/dl (3.4-5.0) 05/28/17 06:20 Urine Color Colorless 05/27/17 19:40 Urine Appearance Clear 05/27/17 19:40 Urine pH 6.0 (5.0-8.0) 05/27/17 19:40 Ur Specific [place] 1.003 (1.001-1.035) 05/27/17 19:40 Urine Protein Negative (NEGATIVE) 05/27/17 19:40 Urine Glucose (UA) Negative (NEGATIVE) 05/27/17 19:40 Urine Ketones Negative (NEGATIVE) 05/27/17 19:40 Urine Blood Negative (NEGATIVE) 05/27/17 19:40 Urine Nitrite Negative (NEGATIVE) 05/27/17 19:40 Urine Bilirubin Negative (<2.0 mg/dL) 05/27/17 19:40 Urine Urobilinogen Negative mg/dL (0.2-1.0) 05/27/17 19:40 Ur Leukocyte Esterase Negative (NEGATIVE) 05/27/17 19:40 RPR Titer Nonreactive (NONREACTIVE) 05/28/17 06:20 HIV 1&2 Antibody Screen Negative 05/27/17 12:45 HIV P24 Antigen Negative 05/27/17 12:45 lab noted 05/29/17 12:54 low K+ serum Assessment: 05/29/17 12:55 withdrawal sx low K+ level Plan: continue detox potassium 20 meq bid x 4 doses
[2017-05-29] MEDS: POTASSIUM CHLORIDE ORAL LIQUID 20 MEQ/15 ML PO SCH ×2 (14:59→22:32)
[2017-05-29] MEDS: chlordiazePOXIDE 5 MG CAPSULE PO SCH ×2 (17:53→22:33)
[2017-05-29] MEDS: THIAMINE HCL 100 MG TABLET (FP) PO SCH (22:32)
[2017-05-29] MEDS: MELATONIN 5 MG TABLETS PO PRN (22:33)
[2017-05-29] MEDS: QUEtiapine FUMARATE 50 MG TABLET PO SCH (22:33)
[2017-05-30] MEDS: chlordiazePOXIDE 5 MG CAPSULE PO SCH ×2 (05:32→10:10)
[2017-05-30] MEDS: NICOTINE POLACRILEX 2 MG GUM BUC PRN ×5 (05:34→22:33)
[2017-05-30] MEDS: POTASSIUM CHLORIDE ORAL LIQUID 20 MEQ/15 ML PO SCH ×2 (10:10→22:32)
[2017-05-30] MEDS: NICOTINE 21 MG/24 HOURS TOPICAL PATCH TD SCH (10:11)
[2017-05-30] MEDS: BACITRACIN 0.9 GM PACKET TP SCH ×2 (10:11→22:32)
[2017-05-30] MEDS: PRENATAL VITAMINS W/ FOLIC ACID TABLET (FP) PO SCH (10:11)
[2017-05-30] MEDS: METHADONE HCL 5 MG TABLET (FOR DETOX USE ONLY) PO SCH (10:11)
[2017-05-30] MEDS: FLUoxetine HCL 20 MG CAPSULE (FP) PO SCH (12:40)
--- NOTE | 2017-05-30 12:44 | EKG ---
Test Reason : Blood Pressure : / mmHG Vent. Rate : 089 BPM Atrial Rate : 089 BPM P-R Int : 106 ms QRS Dur : 084 ms QT Int : 372 ms P-R-T Axes : 046 058 063 degrees QTc Int : 452 ms SINUS RHYTHM WITH SHORT LA OTHERWISE NORMAL ECG WHEN COMPARED WITH ECG OF 22-MAR-2017 14:32, NONSPECIFIC T WAVE ABNORMALITY, WORSE IN ANTERIOR LEADS Confirmed by ROMMEL DOHERTY MD ([id number]) on 05/30/2017 12:44:25 PM Referred By: Confirmed By:ROMMEL DOHERTY MD
--- NOTE | 2017-05-30 13:15 | PN ---
[facility] Progress Note (SOAP) Subjective: slight tremor sleep disturbance Objective: 05/30/17 13:14 A & O x 3 gait steady no acute distress Vital Signs Temperature 97.0 F L 05/30/17 10:24 Pulse Rate 85 05/30/17 10:24 Respiratory Rate 18 05/30/17 10:24 Blood Pressure 104/66 05/30/17 10:24 O2 Sat by Pulse Oximetry (%) Assessment: 05/30/17 13:15 withdrawal sx Plan: continue detox
[2017-05-30] MEDS: chlordiazePOXIDE HCL 10 MG CAPSULE PO SCH ×2 (17:20→22:32)
[2017-05-30] MEDS: QUEtiapine FUMARATE 50 MG TABLET PO SCH (22:32)
[2017-05-30] MEDS: THIAMINE HCL 100 MG TABLET (FP) PO SCH (22:32)
[2017-05-31] MEDS: chlordiazePOXIDE HCL 10 MG CAPSULE PO SCH ×2 (05:39→10:25)
[2017-05-31] MEDS: NICOTINE POLACRILEX 2 MG GUM BUC PRN (05:41)
[2017-05-31] MEDS ORDERED: METHADONE HCL 5 MG TABLET (FOR DETOX USE ONLY) PO ONE (09:45)
[2017-05-31] MEDS: POTASSIUM CHLORIDE ORAL LIQUID 20 MEQ/15 ML PO SCH (09:58)
[2017-05-31] MEDS: PRENATAL VITAMINS W/ FOLIC ACID TABLET (FP) PO SCH (09:59)
[2017-05-31] MEDS: NICOTINE 21 MG/24 HOURS TOPICAL PATCH TD SCH (09:59)
[2017-05-31] MEDS: BACITRACIN 0.9 GM PACKET TP SCH (09:59)
[2017-05-31] MEDS: FLUoxetine HCL 20 MG CAPSULE (FP) PO SCH (09:59)
[2017-05-31] MEDS ORDERED: METHADONE HCL 10 MG TABLET (FOR DETOX USE ONLY) PO SCH (10:00)
[2017-05-31 10:25] VITALS: BP 106/72; PULSE 90; TEMP 98.1
--- NOTE | 2017-05-31 10:44 | DS ---
[facility] Detox Discharge Summary Admission Date: 05/27/17 Discharge Date: 05/31/17 - History Present History: Alcohol Dependence, Opioid Dependence Additional Comments: 32 years old female admitted on 05/27/17 for alcohol and opioid detox reported no alcohol and opioid withdrawal sx feeling better wants to follow up with her primary care physician [phone] and goes to an community meeting that helped her in the past kept her sober patient is alert oriented x 3 no acute distress denies suicidal denies homocidal no self destructive behavior - Physical Exam Results Vital Signs: Vital Signs Temperature 98.1 F 05/31/17 10:24 Pulse Rate 90 05/31/17 10:24 Respiratory Rate 20 05/31/17 10:24 Blood Pressure 106/72 05/31/17 10:24 O2 Sat by Pulse Oximetry (%) Pertinent Admission Physical Exam Findings: withdrawal sx Vital Signs Temperature 98.1 F 05/31/17 10:24 Pulse Rate 90 05/31/17 10:24 Respiratory Rate 20 05/31/17 10:24 Blood Pressure 106/72 05/31/17 10:24 O2 Sat by Pulse Oximetry (%) Laboratory Last Values WBC 4.6 K/mm3 (4.0-10.0) D 05/28/17 06:20 RBC 4.34 M/mm3 (3.60-5.2) 05/28/17 06:20 Hgb 12.7 GM/dL (10.7-15.3) 05/28/17 06:20 Hct 38.5 % (32.4-45.2) 05/28/17 06:20 MCV 88.8 fl (80-96) 05/28/17 06:20 MCH 29.3 pg (25.7-33.7) 05/28/17 06:20 MCHC 33.0 g/dl (32.0-36.0) 05/28/17 06:20 RDW 14.4 % (11.6-15.6) 05/28/17 06:20 Plt Count 338 K/MM3 (134-434) 05/28/17 06:20 MPV 10.1 fl (7.5-11.1) D 05/28/17 06:20 Sodium 143 mmol/L (136-145) 05/28/17 06:20 Potassium 3.4 mmol/L (3.5-5.1) L 05/28/17 06:20 Chloride 107 mmol/L (98-107) 05/28/17 06:20 Carbon Dioxide 28 mmol/L (21-32) 05/28/17 06:20 Anion Gap 8 (8-16) 05/28/17 06:20 BUN 8 mg/dL (7-18) 05/28/17 06:20 Creatinine 0.8 mg/dL (0.55-1.02) 05/28/17 06:20 Creat Clearance w eGFR > 60 (>60) 05/28/17 06:20 Random Glucose 92 mg/dL (74-106) 05/28/17 06:20 Calcium 9.0 mg/dL (8.5-10.1) 05/28/17 06:20 Total Bilirubin 0.4 mg/dL (0.2-1.0) D 05/28/17 06:20 AST 18 U/L (15-37) 05/28/17 06:20 ALT 21 U/L (12-78) 05/28/17 06:20 Alkaline Phosphatase 77 U/L (45-117) 05/28/17 06:20 Total Protein 7.5 g/dl (6.4-8.2) 05/28/17 06:20 Albumin 3.7 g/dl (3.4-5.0) 05/28/17 06:20 Urine Color Colorless 05/27/17 19:40 Urine Appearance Clear 05/27/17 19:40 Urine pH 6.0 (5.0-8.0) 05/27/17 19:40 Ur Specific [place] 1.003 (1.001-1.035) 05/27/17 19:40 Urine Protein Negative (NEGATIVE) 05/27/17 19:40 Urine Glucose (UA) Negative (NEGATIVE) 05/27/17 19:40 Urine Ketones Negative (NEGATIVE) 05/27/17 19:40 Urine Blood Negative (NEGATIVE) 05/27/17 19:40 Urine Nitrite Negative (NEGATIVE) 05/27/17 19:40 Urine Bilirubin Negative (<2.0 mg/dL) 05/27/17 19:40 Urine Urobilinogen Negative mg/dL (0.2-1.0) 05/27/17 19:40 Ur Leukocyte Esterase Negative (NEGATIVE) 05/27/17 19:40 RPR Titer Nonreactive (NONREACTIVE) 05/28/17 06:20 HIV 1&2 Antibody Screen Negative 05/27/17 12:45 HIV P24 Antigen Negative 05/27/17 12:45 lab noted - Treatment Hospital Course: Detox Protocol Followed, Detoxed Safely, Responded well, Discharged Condition Good, Rehab Referral Accepted Patient has Accepted a Rehab Referral to: community self help group and meeting - Medication Discharge Medications: Ambulatory Orders Ferrous Sulfate 325 mg PO TID 03/22/17 Bupropion HCl [Wellbutrin Sr] 150 mg PO DAILY 05/27/17 Quetiapine Fumarate [Seroquel] 100 mg PO HS 05/27/17 Valacyclovir HCl [Valtrex -] 500 mg PO DAILY #30 tablet 05/31/17 - Diagnosis (1) Alcohol dependence with uncomplicated withdrawal Current Visit: Yes Status: Acute (2) Opioid dependence with withdrawal Current Visit: Yes Status: Acute (3) Nicotine dependence Current Visit: Yes Status: Acute Qualifiers: Nicotine product type: cigarettes Substance use status: in withdrawal Qualified Code(s): F17.213 - Nicotine dependence, cigarettes, with withdrawal (4) Asthma Current Visit: Yes Status: Chronic Qualifiers: Asthma severity: mild Asthma persistence: intermittent Asthma complication type: with status asthmaticus Qualified Code(s): J45.22 - Mild intermittent asthma with status asthmaticus - AMA Did Patient Leave Against Medical Advice: No
[2017-06-01] MEDS ORDERED: METHADONE HCL 5 MG TABLET (FOR DETOX USE ONLY) PO SCH (06:00)
== END 2017-05-31 10:14 | disposition home or self-care (01) | DRG 897 ==
LOC: YASAS 10:27 → Y6N 13:04
PROVIDERS: ADMIT Internal Medicine; ATTEND Internal Medicine
PROC: HZ2ZZZZ Detoxification Services for Substance Abuse Treatment (ICD-10-PCS; principal; 2017-05-27)
DX: F11.23 Opioid dependence with withdrawal (principal); F14.20 Cocaine dependence, uncomplicated; F33.9 Major depressive disorder, recurrent, unspecified; F10.230 Alcohol dependence with withdrawal, uncomplicated; F17.213 Nicotine dependence, cigarettes, with withdrawal; F43.10 Post-traumatic stress disorder, unspecified; Z86.59 Personal history of other mental and behavioral disorders; Z86.2 Personal history of diseases of the blood and blood-forming organs and certain disorders involving the immune mechanism; Z86.19 Personal history of other infectious and parasitic diseases
CPT/HCPCS: 36415; 80053; 81003; 85027; 86593; 87389; 93005; 93010

== ENCOUNTER 2017-07-29 23:53 | Emergency (ER) | payer BC, OTHER ==
[2017-07-30 00:14] VITALS: BP 139/98; PULSE 83; TEMP 97.8; BMI 20.9
--- NOTE | 2017-07-30 00:34 | PDOC ---
History of Present Illness - General Chief Complaint: Alcohol intoxication Stated Complaint: INTOX History Source: Patient - History of Present Illness Initial Comments: 07/30/17 06:[address] Timing/Duration: 1-3 hours Severity: mild Modifying Factors: improves with: eating Associated Symptoms: denies: chest pain, fever/chills Past History - Past Medical History Allergies/Adverse Reactions: Allergies Allergy/AdvReac Type Severity Reaction Status Date / Time No Known Allergies Allergy Verified 05/27/17 11:47 Home Medications: Ambulatory Orders Bupropion HCl [Wellbutrin Sr] 150 mg PO DAILY 05/27/17 Quetiapine Fumarate [Seroquel] 100 mg PO HS 05/27/17 Anemia: Yes (on iron) Asthma: No Cancer: No Cardiac Disorders: No CVA: No COPD: No CHF: No Diabetes: No GI Disorders: No Disorders: No HTN: No Hypercholesterolemia: No Kidney Stones: No Liver Disease: No Seizures: No Thyroid Disease: No - Surgical History Abdominal Surgery: Yes (ELECTIVE , 2003.) Appendectomy: No Cardiac Surgery: No Cholecystectomy: No Lung Surgery: No Neurologic Surgery: No Orthopedic Surgery: Yes (R elbow sx 01/04/17) - Reproductive History PID: No - Immunization History Td Vaccination: (UNK) - Suicide/Smoking/Psychosocial Hx Smoking Status: No Smoking History: Current every day smoker Have you smoked in the past 12 months: Yes Number of Cigarettes Smoked Daily: 10 Cigars Per Day: 0 Information on smoking cessation initiated: Yes 'Breaking Loose' booklet given: 05/27/17 Hx Alcohol Use: Yes Drug/Substance Use Hx: Yes Substance Use Type: Alcohol, Cocaine, Heroin Hx Substance Use Treatment: Yes (Previous DEtox at [facility] (03/2017); Rehab at [facility] in 03/2017.) Review of Systems - Review of Systems All Other Systems: Reviewed and Negative *Physical Exam - Vital Signs Last Vital Signs Temp Pulse Resp BP Pulse Ox 97.8 F 83 16 139/98 96 07/30/17 00:10 07/30/17 00:10 07/30/17 00:10 07/30/17 00:10 07/30/17 00:10 - Physical Exam General Appearance: Yes: Nourished, Appropriately Dressed HEENT: positive: Normal Voice Neck: negative: Tender Respiratory/Chest: positive: Normal Breath Sounds Cardiovascular: positive: Regular Rate Musculoskeletal: positive: Normal Inspection Extremity: positive: Normal Capillary Refill Integumentary: positive: Normal Color Neurologic: positive: Fully Oriented, Other (nl gait, nl speech). negative: Confused, Disoriented Medical Decision Making - Medical Decision Making 07/30/17 06:38 alcohol use sober in ED stable for dc *DC/Admit/Observation/Transfer Diagnosis at time of Disposition: Alcohol intoxication Qualifiers: Complication of substance-induced condition: uncomplicated Qualified Code(s): F10.920 - Alcohol use, unspecified with intoxication, uncomplicated - Discharge Dispostion Disposition: HOME Condition at time of disposition: Stable - Referrals - Patient Instructions - Post Discharge Activity
== END 2017-07-30 00:38 | disposition home or self-care (01) ==
LOC: FER 23:53
CPT/HCPCS: 99282-25

== ENCOUNTER 2017-12-04 17:45 | Emergency (ER) | payer SELFPAY ==
--- NOTE | 2017-12-04 18:47 | PDOC ---
History of Present Illness - General History Source: Patient Exam Limitations: No Limitations - History of Present Illness Initial Comments: 12/04/17 18:50 The patient is a 32 year old female, with a significant PMH of HSV, who presents to the emergency department via EMS for heroin overdose. The patient states she accidentally overdosed on heroin this morning with her boyfriend. The patient states she sniffed the heroin and admits to drinking a couple of beers before the incident. She reports EMS gave her Narcan before arriving to the ER. The patient currently feels nauseous and reports her LMP was last week. The patient denies chest pain, shortness of breath, headache and dizziness. Denies fever, chills, vomit, diarrhea and constipation. Denies dysuria, frequency, urgency and hematuria. Allergies: NKDA Past surgical history:None reported Social history: Admits to alcohol and heroin abuse. PCP: None reported <Ernesto Rodriguez - Last Filed: 12/04/17 18:50> - General History Source: Patient Exam Limitations: No Limitations <China Tillman - Last Filed: 12/04/17 19:26> <Jenifer Boone - Last Filed: 12/04/17 22:57> - General Chief Complaint: Overdose Stated Complaint: HEROIN OVERDOSE Time Seen by Provider: 12/04/17 18:31 Past History <Ernesto Rodriguez - Last Filed: 12/04/17 18:50> - Past Medical History Anemia: Yes (on iron) Asthma: No Cancer: No Cardiac Disorders: No CVA: No COPD: No CHF: No Diabetes: No GI Disorders: No Disorders: No HTN: No Hypercholesterolemia: No Kidney Stones: No Liver Disease: No Psychiatric Problems: Yes Seizures: No Thyroid Disease: No - Surgical History Abdominal Surgery: Yes (ELECTIVE , 2003.) Appendectomy: No Cardiac Surgery: No Cholecystectomy: No Lung Surgery: No Neurologic Surgery: No Orthopedic Surgery: Yes (R elbow sx 01/04/17) - Reproductive History PID: No - Immunization History Td Vaccination: (UNK) - Suicide/Smoking/Psychosocial Hx Smoking Status: No Smoking History: Current every day smoker Have you smoked in the past 12 months: Yes Number of Cigarettes Smoked Daily: 10 Cigars Per Day: 0 Information on smoking cessation initiated: Yes 'Breaking Loose' booklet given: 05/27/17 Hx Alcohol Use: Yes Drug/Substance Use Hx: Yes Substance Use Type: Alcohol, Cocaine, Heroin Hx Substance Use Treatment: Yes (Previous DEtox at [facility] (03/2017); Rehab at [facility] in 03/2017.) <RashimaiChina - Last Filed: 12/04/17 19:26> <Jenifer Boone - Last Filed: 12/04/17 22:57> - Past Medical History Allergies/Adverse Reactions: Allergies Allergy/AdvReac Type Severity Reaction Status Date / Time No Known Allergies Allergy Verified 12/04/17 18:24 Home Medications: Ambulatory Orders Bupropion HCl [Wellbutrin Sr] 150 mg PO DAILY 05/27/17 Quetiapine Fumarate [Seroquel] 100 mg PO HS 05/27/17 Review of Systems - Review of Systems Able to Perform ROS?: Yes Comments:: 12/04/17 18:51 GENERAL/CONSTITUTIONAL: No fever or chills. No weakness. HEAD, EYES, EARS, NOSE AND THROAT: No change in vision. No ear pain or discharge. No sore throat. CARDIOVASCULAR: No chest pain or shortness of breath. RESPIRATORY: No cough, wheezing, or hemoptysis. GASTROINTESTINAL: +nausea. No vomiting, diarrhea or constipation. GENITOURINARY: No dysuria, frequency, or change in urination. MUSCULOSKELETAL: No joint or muscle swelling or pain. No neck or back pain. SKIN: No rash NEUROLOGIC: No headache, vertigo, loss of consciousness, or change in strength/ sensation. ENDOCRINE: No increased thirst. No abnormal weight change. HEMATOLOGIC/LYMPHATIC: No anemia, easy bleeding, or history of blood clots. ALLERGIC/IMMUNOLOGIC: No hives or skin allergy <Ernesto Rodriguez - Last Filed: 12/04/17 18:50> *Physical Exam - Vital Signs Last Vital Signs Temp Pulse Resp BP Pulse Ox 97.9 F 90 20 143/90 100 12/04/17 18:04 12/04/17 18:04 12/04/17 18:04 12/04/17 18:04 12/04/17 18:04 - Physical Exam Comments: 12/04/17 18:52 GENERAL: Awake, alert, and fully oriented, in no acute distress HEAD: No signs of trauma EYES: PERRLA, EOMI, sclera anicteric, conjunctiva clear ENT: Auricles normal inspection, hearing grossly normal, nares patent, oropharynx clear without exudates. Moist mucosa NECK: Normal ROM, supple, no lymphadenopathy, JVD, or masses LUNGS: Breath sounds equal, clear to auscultation bilaterally. No wheezes, and no crackles HEART: Regular rate and rhythm, normal S1 and S2, no murmurs, rubs or gallops ABDOMEN: Soft, nontender, normoactive bowel sounds. No guarding, no rebound. No masses EXTREMITIES: Normal range of motion, no edema. No clubbing or cyanosis. No cords, erythema, or tenderness NEUROLOGICAL: Cranial nerves II through XII grossly intact. Normal speech, normal gait SKIN: Warm, Dry, normal turgor, no rashes or lesions noted. <Ernesto Rodriguez - Last Filed: 12/04/17 18:50> - Vital Signs Last Vital Signs Temp Pulse Resp BP Pulse Ox 97.9 F 90 20 143/90 100 12/04/17 18:04 12/04/17 18:04 12/04/17 18:04 12/04/17 18:04 12/04/17 18:04 <China Tillman - Last Filed: 12/04/17 19:26> - Vital Signs Last Vital Signs Temp Pulse Resp BP Pulse Ox 98.0 F 92 H 18 124/81 97 12/04/17 21:09 12/04/17 21:09 12/04/17 21:09 12/04/17 21:09 12/04/17 21:09 <Jenifer Boone - Last Filed: 12/04/17 22:57> ED Treatment Course - LABORATORY CBC & Chemistry Diagram: 12/04/17 19:00 12/04/17 19:00 <China Tillman - Last Filed: 12/04/17 19:26> - LABORATORY CBC & Chemistry Diagram: 12/04/17 19:00 12/04/17 19:00 - ADDITIONAL ORDERS Additional order review: Laboratory Results 12/04/17 12/04/17 12/04/17 20:00 19:00 19:00 Sodium Potassium Chloride Carbon Dioxide Anion Gap BUN Creatinine Creat Clearance w eGFR Random Glucose Calcium Total Bilirubin AST ALT Alkaline Phosphatase Total Protein Albumin Urine HCG, Qual Salicylates < 1.7 L Opiates Screen Positive A* Methadone Screen Negative Acetaminophen < 2.0 L Barbiturate Screen Negative Phencyclidine Screen Negative Ur Amphetamines Screen Negative MDMA (Ecstasy) Screen Negative Benzodiazepines Screen Negative Cocaine Screen Negative U Marijuana (THC) Screen Negative Alcohol, Quantitative 12.8 H 12/04/17 12/04/17 19:00 19:00 Sodium 137 Potassium 4.0 Chloride 102 Carbon Dioxide 26 Anion Gap 9 BUN 6 L Creatinine 0.6 Creat Clearance w eGFR > 60 Random Glucose 98 Calcium 8.7 Total Bilirubin 0.3 AST 86 H D ALT 48 H D Alkaline Phosphatase 64 Total Protein 7.2 Albumin 3.8 Urine HCG, Qual Negative Salicylates Opiates Screen Methadone Screen Acetaminophen Barbiturate Screen Phencyclidine Screen Ur Amphetamines Screen MDMA (Ecstasy) Screen Benzodiazepines Screen Cocaine Screen U Marijuana (THC) Screen Alcohol, Quantitative 12/04/17 19:00 RBC 4.28 MCV 90.7 MCHC 33.7 RDW 12.1 MPV 8.8 Neutrophils % 80.5 Lymphocytes % 10.1 Monocytes % 6.6 Eosinophils % 2.7 Basophils % 0.1 - Medications Given in the ED: ED Medications Discontinued Medications Generic Name Dose Route Start Last Admin Trade Name Freq PRN Reason Stop Dose Admin Sodium Chloride 1,000 ml 12/04/17 18:49 12/04/17 19:59 Normal Saline - IV 12/04/17 18:50 1,000 ml ONCE ONE Administration <Jenifer Boone - Last Filed: 12/04/17 22:57> Medical Decision Making - Medical Decision Making 12/04/17 18:46 32 yo F with h/o substance abuse, states she was clean for very long time. today used heroin with her boyfriend. overdosed so boyfriend called ambulance. given narcan. states few etoh today, denies other drug use. denies si or hi. states was an accidetn. offered detox, pt declined. will observe make sure no recurrence after narcan wears off. 12/04/17 19:26 pt will require observation for 3 hours. tox and labs pending. singed out to DR Hess, for reassessment pending labs. <China Tillman - Last Filed: 12/04/17 19:26> - Medical Decision Making 12/04/17 22:57 Labs normal; stable for d/c <Jenifer Boone - Last Filed: 12/04/17 22:57> *DC/Admit/Observation/Transfer - Attestations Scribe Attestion: 12/04/17 18:52 Documentation prepared by Ernesto Rodriguez, acting as medical lab assistant for China Tillman MD. <Ernesto Rodriguez - Last Filed: 12/04/17 18:50> <China Tillman - Last Filed: 12/04/17 19:26> - Discharge Dispostion Decision to Admit order: No <Jenifer Boone - Last Filed: 12/04/17 22:57> Diagnosis at time of Disposition: Heroin overdose - Discharge Dispostion Disposition: HOME Condition at time of disposition: Improved - Patient Instructions Printed Discharge Instructions: Chemical Dependency (Narcotic) (Alternative Therapy), Getting Treatment for Drug Addiction
[2017-12-04] MEDS ORDERED: SODIUM CHLORIDE 0.9% 1000 ML INFUS.BAG IV ONE (18:49)
[2017-12-04 18:54] VITALS: PULSE 92; BMI 21.6
[2017-12-04 19:33] LABS: BASO % 0.1 % (0-2.0); EOS % 2.7 % (0-4.5); HEMATOCRIT 38.8 % (32.4-45.2); HEMOGLOBIN 13.1 GM/dl (10.7-15.3); LYMPH % 10.1 % (8-40); MCH 30.5 pg (25.7-33.7); MCHC 33.7 g/dl (32.0-36.0); MEAN CELL VOLUME 90.7 fl (80-96); MEAN PLT VOLUME 8.8 fl (7.5-11.1); MONO % 6.6 % (3.8-10.2); NEUT % 80.5 % (42.8-82.8); PLATELET COUNT 264 K/MM3 (134-434); RBC 4.28 M/mm3 (3.60-5.2); RDW 12.1 % (11.6-15.6); WHITE BLOOD COUNT 5.4 K/mm3 (4.0-10.8)
[2017-12-04 19:43] LABS: ALBUMIN 3.8 g/dl (3.5-5.0); ALK PHOS 64 U/L (32-92); ANION GAP 9 MMOL/L (8-16); BILIRUBIN,TOTAL 0.3 mg/dl (0.2-1.0); BLOOD UREA NITROGEN 6 mg/dl (7-18); CALCIUM 8.7 mg/dl (8.4-10.2); CHLORIDE 102 mmol/L (98-107); CO2 26 mmol/L (22-28); CREATININE 0.6 mg/dl (0.6-1.3); GLUCOSE,RANDOM 98 mg/dl (74-106); SGOT/AST 86 U/L (10-42); SGPT/ALT 48 U/L (10-40); SODIUM 137 mmol/L (136-145); TOT PROT 7.2 g/dl (6.4-8.3)
[2017-12-04 21:01] LABS: COCAINE, UR NEGATIVE ng/ml (CUTOFF=300); METHADONE, UR NEGATIVE ng/ml (CUTOFF=300); PHENCYCLIDINE,URINE NEGATIVE ng/ml (CUTOFF=25); URINE AMPHETAMINES NEGATIVE ng/ml (CUTOFF=500); URINE BARBITURATES NEGATIVE ng/ml (CUTOFF=200); URINE BENZODIAZEPINES NEGATIVE ng/ml (CUTOFF=200)
[2017-12-04 21:05] LABS: OPIATES, URI POSITIVE ng/ml (CUTOFF=300)
[2017-12-04 21:10] VITALS: BP 124/81; TEMP 98
== END 2017-12-04 21:21 | disposition home or self-care (01) ==
LOC: FER 17:45
PROC: 3E0337Z Introduction of Electrolytic and Water Balance Substance into Peripheral Vein, Percutaneous Approach (ICD-10-PCS; principal; 2017-12-04)
DX: T40.1X4A Poisoning by heroin, undetermined, initial encounter (principal); X58.XXXA Exposure to other specified factors, initial encounter; Y93.89 Activity, other specified; Y92.9 Unspecified place or not applicable; F99 Mental disorder, not otherwise specified
CPT/HCPCS: 36415; 80053; 80307; 84703; 85025; 87389; 99285-25; J7030

== ENCOUNTER 2017-12-15 21:01 | Emergency (ER) | payer SELFPAY ==
[2017-12-15 21:15] VITALS: BP 130/84; PULSE 90; TEMP 97.8; BMI 21.6
--- NOTE | 2017-12-15 21:16 | PDOC ---
History of Present Illness - General History Source: Patient Exam Limitations: No Limitations - History of Present Illness Initial Comments: 12/15/17 21:34 The patient is a 32-year-old female present to the emergency department with a left ankle injury. The patient states she was going down the stairs when she fell and injured the left lateral region of the ankle. The patient reports she s been avoiding putting pressure on the ankle, secondary to an exacerbation of pain. Denies head injury, LOC, headache, nausea, vomiting, weakness, numbness, tingling or loss of sensation. Allergies: NKA Social history: Current everyday smoker. The patient reports the use of alcohol or recreational drugs. Surgical history: R. elbow sx and Lasix sx both eyes. <Shanique Meade - Last Filed: 12/15/17 21:37> <Jonny Evans - Last Filed: 12/16/17 06:39> - General Chief Complaint: Injury Stated Complaint: LT ANKLE PAIN Past History <Shanique Meade - Last Filed: 12/15/17 21:37> - Past Medical History Anemia: Yes (on iron) Asthma: No Cancer: No Cardiac Disorders: No CVA: No COPD: No CHF: No Diabetes: No GI Disorders: No Disorders: No HTN: No Hypercholesterolemia: No Kidney Stones: No Liver Disease: No Psychiatric Problems: Yes Seizures: No Thyroid Disease: No Other medical history: DRUG DEPENDENCY - Surgical History Abdominal Surgery: Yes (ELECTIVE , 2003.) Appendectomy: No Cardiac Surgery: No Cholecystectomy: No Lung Surgery: No Neurologic Surgery: No Orthopedic Surgery: Yes (R elbow sx 01/04/17) - Reproductive History PID: No - Immunization History Td Vaccination: (UNK) - Suicide/Smoking/Psychosocial Hx Smoking Status: No Smoking History: Current every day smoker Have you smoked in the past 12 months: Yes Number of Cigarettes Smoked Daily: 10 Cigars Per Day: 0 Information on smoking cessation initiated: Yes 'Breaking Loose' booklet given: 12/04/17 Hx Alcohol Use: Yes Drug/Substance Use Hx: Yes Substance Use Type: Alcohol, Cocaine, Heroin Hx Substance Use Treatment: Yes (Previous DEtox at [facility] (03/2017); Rehab at [facility] in 03/2017.) <Jonny Evans - Last Filed: 12/16/17 06:39> - Past Medical History Allergies/Adverse Reactions: Allergies Allergy/AdvReac Type Severity Reaction Status Date / Time No Known Allergies Allergy Verified 12/04/17 18:24 Home Medications: Ambulatory Orders Bupropion HCl [Wellbutrin Sr] 150 mg PO DAILY 05/27/17 Quetiapine Fumarate [Seroquel] 100 mg PO HS 05/27/17 Trauma Specific PMHX - Complaint Specific PMHX Arthritis: No <Jonny Evans - Last Filed: 12/16/17 06:39> Review of Systems - Review of Systems Comments:: 12/15/17 21:33 GENERAL/CONSTITUTIONAL: No fever or chills. No weakness. HEAD, EYES, EARS, NOSE AND THROAT: No change in vision. No ear pain or discharge. No sore throat. CARDIOVASCULAR: No chest pain or shortness of breath. RESPIRATORY: No cough, wheezing, or hemoptysis. GASTROINTESTINAL: No nausea, vomiting, diarrhea or constipation. GENITOURINARY: No dysuria, frequency, or change in urination. MUSCULOSKELETAL: (+) L. ankle injury. No other joint or muscle swelling or pain. No neck or back pain. SKIN: No rash NEUROLOGIC: No headache, vertigo, loss of consciousness, or change in strength/ sensation. ENDOCRINE: No increased thirst. No abnormal weight change. HEMATOLOGIC/LYMPHATIC: No anemia, easy bleeding, or history of blood clots. ALLERGIC/IMMUNOLOGIC: No hives or skin allergy. <Shanique Meade - Last Filed: 12/15/17 21:37> *Physical Exam - Vital Signs Last Vital Signs Temp Pulse Resp BP Pulse Ox 97.8 F 90 16 130/84 98 12/15/17 21:03 12/15/17 21:03 12/15/17 21:03 12/15/17 21:03 12/15/17 21:03 - Physical Exam Comments: 12/15/17 21:33 GENERAL: Awake, alert, and fully oriented, in no acute distress HEAD: No signs of trauma EXTREMITIES: Tender over the lateral malleolus. Rest of the extremity: Normal range of motion, no edema. No clubbing or cyanosis. No cords, erythema, or tenderness NEUROLOGICAL: Cranial nerves II through XII grossly intact. Normal speech. SKIN: Warm, Dry, normal turgor, no rashes or lesions noted. <Shanique Meade - Last Filed: 12/15/17 21:37> - Vital Signs Last Vital Signs Temp Pulse Resp BP Pulse Ox 97.8 F 90 16 130/84 98 12/15/17 21:03 12/15/17 21:03 12/15/17 21:03 12/15/17 21:03 12/15/17 21:03 <Jonny Evans - Last Filed: 12/16/17 06:39> Medical Decision Making - Medical Decision Making 12/16/17 06:38 plain films: no fx, as read by me, referrd to radiology james wrap appl;ied crutch education ankle sprain nsaids weight bearing as tolerated <Jonny Evans - Last Filed: 12/16/17 06:39> *DC/Admit/Observation/Transfer <Shanique Meade - Last Filed: 12/15/17 21:37> <Jonny Evans - Last Filed: 12/16/17 06:39> Diagnosis at time of Disposition: Ankle sprain Qualifiers: Encounter type: initial encounter Involved ligament of ankle: unspecified ligament Laterality: left Qualified Code(s): S93.402A - Sprain of unspecified ligament of left ankle, initial encounter - Discharge Dispostion Disposition: HOME Condition at time of disposition: Stable - Patient Instructions Printed Discharge Instructions: How to Use Crutches, DI for Ankle Sprain
== END 2017-12-15 21:56 | disposition home or self-care (01) ==
LOC: FER 21:01
DX: S93.402A Sprain of unspecified ligament of left ankle, initial encounter (principal); W10.9XXA Fall (on) (from) unspecified stairs and steps, initial encounter; Y93.89 Activity, other specified; Y92.89 Other specified places as the place of occurrence of the external cause; F17.210 Nicotine dependence, cigarettes, uncomplicated
CPT/HCPCS: 73610-TC-LT-FY; 99282-25

== ENCOUNTER 2017-12-16 15:48 | Emergency (ER) | payer OTHER ==
--- NOTE | 2017-12-16 17:16 | PDOC ---
Rapid Medical Evaluation Chief Complaint: Pain, Acute Time Seen by Provider: 12/16/17 17:11 Medical Evaluation: Allergies Allergy/AdvReac Type Severity Reaction Status Date / Time No Known Allergies Allergy Verified 12/04/17 18:24 12/16/17 17:12 32 year old female left ankle pain and swelling. also swelling to right ankle patient was seen in [place] ER last night xray negative for fracture. patient reports Pe: patient alert ox3. + swelling to left ankle. limited rom A: ankle pain P; xray urine Discharge Disposition - Diagnosis Ankle pain, right Qualifiers: Chronicity: acute Qualified Code(s): M25.571 - Pain in right ankle and joints of right foot Ankle pain, left Qualifiers: Chronicity: acute Qualified Code(s): M25.572 - Pain in left ankle and joints of left foot - Referrals - Patient Instructions - Post Discharge Activity
[2017-12-16 17:17] VITALS: BP 129/89; PULSE 77; TEMP 98; BMI 21.6
--- NOTE | 2017-12-16 18:39 | PDOC ---
History of Present Illness - General Chief Complaint: Injury Stated Complaint: INJURY Time Seen by Provider: 12/16/17 17:11 History Source: Patient Exam Limitations: No Limitations (? illicit drug use) - History of Present Illness Initial Comments: 12/16/17 18:34 32-year-old female presents to ED status post mechanical fall yesterday. Patient was walking down some steps and missed the last step causing her to land on her left ankle. Patient states went to a local ER had an x-ray was given crutches. Patient states has fallen approximate 4-5 times since then. Patient states now has twisted her right ankle and has taken nothing for the pain. Patient states chipped fracture to her right ankle last year after falling Occurred: reports: this afternoon, yesterday Severity: reports: mild Pain Location: reports: lower extremity Method of Injury: Yes: fall Modifying Factors: improves with: None Loss of Consciousness: no loss of consciousness Associated Symptoms (Fall): trouble walking Past History - Travel Traveled outside of the country in the last 30 days: No - Past Medical History Allergies/Adverse Reactions: Allergies Allergy/AdvReac Type Severity Reaction Status Date / Time No Known Allergies Allergy Verified 12/16/17 17:14 Home Medications: Ambulatory Orders Bupropion HCl [Wellbutrin Sr] 150 mg PO DAILY 05/27/17 Quetiapine Fumarate [Seroquel] 100 mg PO HS 05/27/17 Anemia: Yes (on iron) Asthma: No Cancer: No Cardiac Disorders: No CVA: No COPD: No CHF: No Diabetes: No GI Disorders: No Disorders: No HTN: No Hypercholesterolemia: No Kidney Stones: No Liver Disease: No Psychiatric Problems: Yes Seizures: No Thyroid Disease: No - Surgical History Abdominal Surgery: Yes (ELECTIVE , 2003.) Appendectomy: No Cardiac Surgery: No Cholecystectomy: No Lung Surgery: No Neurologic Surgery: No Orthopedic Surgery: Yes (R elbow sx 01/04/17) - Reproductive History PID: No - Immunization History Td Vaccination: (UNK) - Suicide/Smoking/Psychosocial Hx Smoking Status: No Smoking History: Never smoked Have you smoked in the past 12 months: Yes Number of Cigarettes Smoked Daily: 10 Cigars Per Day: 0 'Breaking Loose' booklet given: 12/04/17 Hx Alcohol Use: No Drug/Substance Use Hx: No Substance Use Type: Alcohol, Cocaine, Heroin Hx Substance Use Treatment: Yes (Previous DEtox at [facility] (03/2017); Rehab at [facility] in 03/2017.) Patient Lives Alone: No Lives with/in: spouse/SO Trauma Specific PMHX - Complaint Specific PMHX Arthritis: No Review of Systems - Review of Systems Constitutional: No: Symptoms Reported Musculoskeletal: Yes: Joint Pain (bilateral ankles) Integumentary: No: Symptoms Reported Neurological: No: Symptoms reported Endocrine: No: Symptoms Reported *Physical Exam - Vital Signs Last Vital Signs Temp Pulse Resp BP Pulse Ox 98 F 77 16 129/89 99 12/16/17 17:15 12/16/17 17:15 12/16/17 17:15 12/16/17 17:15 12/16/17 17:15 - Physical Exam General Appearance: Yes: Nourished, Appropriately Dressed, Disheveled, Other Neck: positive: Supple Cardiovascular: positive: Regular Rhythm, Regular Rate. negative: Murmur Extremity: positive: Normal Capillary Refill, Normal Range of Motion, Tender ( lateral aspect of bilateral malleolus is). negative: Normal Inspection (noted edema and ecchymosis to lateral aspect of venkatesh ankles) Neurologic: positive: Normal Mood/Affect ED Treatment Course - ADDITIONAL ORDERS Additional order review: Laboratory Results 12/16/17 17:20 Urine HCG, Qual Negative Medical Decision Making - Medical Decision Making 12/16/17 18:09 CC: pt s/p fall x 5 . Seen at [facility] , had - xray and give crutches. Since then fell x 4.venkatesh Exam: venkatesh ankle ecchymosis and edema Plan: Xrays 12/16/17 18:41 X-ray reviewed and noted fragment chip fracture to the right fibula. Patient states has previous fracture to area. Patient be given an air splint cast and crutch care instructions. Patient recommended to avoid alcohol, drugs or other sedatives to prevent falling. *DC/Admit/Observation/Transfer Diagnosis at time of Disposition: Ankle pain, right Qualifiers: Chronicity: acute Qualified Code(s): M25.571 - Pain in right ankle and joints of right foot Ankle pain, left Qualifiers: Chronicity: acute Qualified Code(s): M25.572 - Pain in left ankle and joints of left foot - Discharge Dispostion Disposition: HOME Condition at time of disposition: Good - Referrals - Patient Instructions Printed Discharge Instructions: How to Prevent Falls, DI for Ankle Sprain Additional Instructions: Apply ice to the affected areas much as you can tolerate for the next 2 days. May use air splint or the day but remove at night. May take Motrin or Tylenol for discomfort. Avoid other drugs, alcohol or sedatives that may cause you to fall. - Post Discharge Activity
== END 2017-12-16 18:48 | disposition home or self-care (01) ==
LOC: JERFT 15:48
PROC: 2W3RX1Z Immobilization of Left Lower Leg using Splint (ICD-10-PCS; principal; 2017-12-16)
DX: S93.492A Sprain of other ligament of left ankle, initial encounter (principal); W10.8XXD Fall (on) (from) other stairs and steps, subsequent encounter; Z91.81 History of falling
CPT/HCPCS: 73610-TC-LT-FY; 73610-TC-RT-FY; 73630-TC-LT; 73630-TC-RT-FY; 84703; 99281-25

== ENCOUNTER 2020-09-15 13:00 | Inpatient (IN) | payer BC, OTHER ==
[2020-09-15 13:13] VITALS: BMI 20.7
[2020-09-15] MEDS ORDERED: VANCOMYCIN 1 GM in D5W (PRE-DOCKED) 1,000 MG/250 ML IVPB ONE (13:43)
[2020-09-15] MEDS ORDERED: VANCOMYCIN 1,000 MG VIAL (RESTRICTED TO ID ONLY) ONE (13:57)
[2020-09-15 14:12] LABS: BASO % 1.3 % (0-2.0); EOS % 1.7 % (0-4.5); HEMATOCRIT 36.8 % (32.4-45.2); HEMOGLOBIN 12.4 GM/dl (10.7-15.3); LYMPH % 11.4 % (8-40); MCH 29.9 pg (25.7-33.7); MCHC 33.8 g/dl (32.0-36.0); MEAN CELL VOLUME 88.7 fl (80-96); MEAN PLT VOLUME 9.2 fl (7.5-11.1); MONO % 9.7 % (3.8-10.2); NEUT % 75.9 % (42.8-82.8); PLATELET COUNT 296 10^3/uL (134-434); RBC 4.15 M/mm3 (3.60-5.2); RDW 12.6 % (11.6-15.6); WHITE BLOOD COUNT 6.3 K/mm3 (4.0-10.8)
[2020-09-15 14:18] LABS: ALBUMIN 3.6 g/dl (3.4-5.0); ALK PHOS 56 U/L (45-117); ANION GAP 10 MMOL/L (8-16); BILIRUBIN,TOTAL 1.4 mg/dl (0.2-1); CALCIUM 8.7 mg/dl (8.5-10); CHLORIDE 101 mmol/L (98-107); CO2 24 mmol/L (21-32); CREATININE 0.7 mg/dl (0.55-1.3); GLUCOSE,RANDOM 94 mg/dl (74-106); SGOT/AST 34 U/L (15-37); SGPT/ALT 27 U/L (13-61); SODIUM 135 mmol/L (136-145); TOT PROT 7.4 g/dl (6.4-8.2)
[2020-09-15] MEDS ORDERED: PIPERACILLIN/TAZOB 2.25 GM 2.25 GM in DEXTROSE 5%-WATER - 50 ML IVPB SCH (15:15)
[2020-09-15] MEDS ORDERED: chlordiazePOXIDE HCL 25 MG CAPSULE PO PRN (15:27)
[2020-09-15] MEDS ORDERED: cloNIDine HCL 0.1 MG TABLET PO PRN (15:27)
[2020-09-15] MEDS ORDERED: methaDONE HCL 10 MG TABLET PO ONE (15:45)
[2020-09-15] MEDS ORDERED: PIPERACILLIN/TAZOBACTAM 2.25 GM VIAL IVPB ONE (16:26)
[2020-09-15] MEDS ORDERED: DEXTROSE 5%-WATER - 50 ML IVPB ONE (16:26)
[2020-09-15] MEDS ORDERED: ACETAMINOPHEN 1000 MG/100 ML VIAL (NON FORMULARY) IVPB ONE (16:30)
[2020-09-15] MEDS ORDERED: ACETAMINOPHEN INJECTION 100 ML IVPB ONE (16:30)
[2020-09-15] MEDS ORDERED: SODIUM CHLORIDE 1,000 ML IV STA ×2 (16:38)
[2020-09-15] MEDS ORDERED: chlordiazePOXIDE HCL 25 MG CAPSULE PO SCH (17:00)
[2020-09-15] MEDS: PIPERACILLIN/TAZOB 3.375 GM 3.375 GM in DEXTROSE 5%-WATER - 50 ML IVPB SCH (20:11)
[2020-09-15] MEDS ORDERED: QUEtiapine FUMARATE 25 MG TABLET ONE (21:20)
[2020-09-15] MEDS ORDERED: QUEtiapine FUMARATE 50 MG TABLET PO SCH ×2 (22:00)
[2020-09-16] MEDS ORDERED: PIPERACILLIN/TAZOBACTAM 3.375 GM VIAL IVPB ONE ×3 (00:37→19:06)
[2020-09-16] MEDS ORDERED: DEXTROSE 5%-WATER - 50 ML IVPB ONE ×3 (00:37→19:07)
[2020-09-16] MEDS: PIPERACILLIN/TAZOB 3.375 GM 3.375 GM in DEXTROSE 5%-WATER - 50 ML IVPB SCH ×3 (01:27→19:11)
[2020-09-16 07:52] LABS: BASO % 1.3 % (0-2.0); EOS % 4.7 % (0-4.5); HEMATOCRIT 34.7 % (32.4-45.2); HEMOGLOBIN 11.4 GM/dl (10.7-15.3); LYMPH % 19.5 % (8-40); MCH 29.6 pg (25.7-33.7); MCHC 32.8 g/dl (32.0-36.0); MEAN CELL VOLUME 90.1 fl (80-96); MEAN PLT VOLUME 8.9 fl (7.5-11.1); MONO % 7.8 % (3.8-10.2); NEUT % 66.7 % (42.8-82.8); PLATELET COUNT 268 10^3/uL (134-434); RBC 3.85 M/mm3 (3.60-5.2); WHITE BLOOD COUNT 4.2 K/mm3 (4.0-10.8)
[2020-09-16 08:17] LABS: ALBUMIN 2.9 g/dl (3.4-5.0); BILIRUBIN,TOTAL 0.9 mg/dl (0.2-1); CREATININE 0.6 mg/dl (0.55-1.3); TOT PROT 5.9 g/dl (6.4-8.2)
[2020-09-16] MEDS ORDERED: VANCOMYCIN/WATER BAGS 1,250 MG/250 ML BAG IVPB SCH (10:00)
[2020-09-16 10:10] LABS: EPITHELIAL CELLS FEW /hpf
[2020-09-16] MEDS: VANCOMYCIN HCL 1,250 MG in DEXTROSE 5%-WATER - 250 ML IVPB SCH (10:29)
[2020-09-16] MEDS: ENOXAPARIN NA (PORCINE) 40 MG/0.4 ML DISP.SYRIN SQ SCH (10:29)
[2020-09-16] MEDS: FLUoxetine HCL 20 MG CAPSULE PO SCH (10:30)
[2020-09-16 12:16] LABS: METHADONE, UR NEGATIVE (NEGATIVE); OPIATES, URI NEGATIVE (NEGATIVE); PHENCYCLIDINE,URINE NEGATIVE (NEGATIVE); URINE BENZODIAZEPINES NEGATIVE (NEGATIVE)
[2020-09-16 12:17] LABS: URINE BARBITURATES NEGATIVE (NEGATIVE)
[2020-09-16 12:20] LABS: URINE AMPHETAMINES NEGATIVE (NEGATIVE)
[2020-09-16 12:30] LABS: COCAINE, UR POSITIVE (NEGATIVE)
[2020-09-16] MEDS: ARIPiprazole 10 MG TABLET PO SCH (14:28)
[2020-09-16] MEDS: QUEtiapine FUMARATE 25 MG TABLET PO SCH (21:17)
[2020-09-17] MEDS ORDERED: DEXTROSE 5%-WATER - 50 ML IVPB ONE ×3 (00:21→16:51)
[2020-09-17] MEDS ORDERED: PIPERACILLIN/TAZOBACTAM 3.375 GM VIAL IVPB ONE ×3 (00:21→16:50)
[2020-09-17] MEDS: PIPERACILLIN/TAZOB 3.375 GM 3.375 GM in DEXTROSE 5%-WATER - 50 ML IVPB SCH ×3 (01:37→17:11)
[2020-09-17] MEDS ORDERED: chlordiazePOXIDE HCL 25 MG CAPSULE PO SCH (05:00)
[2020-09-17 08:06] LABS: BASO % 2.7 % (0-2.0); EOS % 4.1 % (0-4.5); HEMATOCRIT 31.3 % (32.4-45.2); HEMOGLOBIN 10.5 GM/dl (10.7-15.3); LYMPH % 21.6 % (8-40); MCH 30.3 pg (25.7-33.7); MCHC 33.6 g/dl (32.0-36.0); MEAN CELL VOLUME 90.2 fl (80-96); MEAN PLT VOLUME 8.9 fl (7.5-11.1); MONO % 5.9 % (3.8-10.2); NEUT % 65.7 % (42.8-82.8); PLATELET COUNT 107 10^3/uL (134-434); RBC 3.48 M/mm3 (3.60-5.2); RDW 13.3 % (11.6-15.6); WHITE BLOOD COUNT 4.4 K/mm3 (4.0-10.8)
[2020-09-17 08:10] LABS: ALBUMIN 2.6 g/dl (3.4-5.0); BILIRUBIN,TOTAL 0.6 mg/dl (0.2-1); CALCIUM 7.9 mg/dl (8.5-10); CREATININE 0.6 mg/dl (0.55-1.3); MAGNESIUM 1.7 mg/dL (1.8-2.4); TOT PROT 5.1 g/dl (6.4-8.2)
[2020-09-17] MEDS: ENOXAPARIN NA (PORCINE) 40 MG/0.4 ML DISP.SYRIN SQ SCH (09:50)
[2020-09-17] MEDS: FLUoxetine HCL 20 MG CAPSULE PO SCH (09:50)
[2020-09-17] MEDS: ARIPiprazole 10 MG TABLET PO SCH (09:52)
[2020-09-17] MEDS ORDERED: methaDONE HCL 10 MG TABLET (FOR DETOX USE ONLY) PO ONE (10:00)
[2020-09-17] MEDS: VANCOMYCIN HCL 1,250 MG in DEXTROSE 5%-WATER - 250 ML IVPB SCH (10:51)
[2020-09-17] MEDS: QUEtiapine FUMARATE 25 MG TABLET PO SCH (21:42)
[2020-09-18] MEDS ORDERED: chlordiazePOXIDE 5 MG CAPSULE PO PRN
[2020-09-18] MEDS ORDERED: DEXTROSE 5%-WATER - 50 ML IVPB ONE ×2 (02:29→09:07)
[2020-09-18] MEDS ORDERED: PIPERACILLIN/TAZOBACTAM 3.375 GM VIAL IVPB ONE ×2 (02:29→09:07)
[2020-09-18] MEDS: PIPERACILLIN/TAZOB 3.375 GM 3.375 GM in DEXTROSE 5%-WATER - 50 ML IVPB SCH ×2 (02:55→09:44)
[2020-09-18] MEDS ORDERED: chlordiazePOXIDE 5 MG CAPSULE PO SCH (05:00)
[2020-09-18 08:23] LABS: BASO % 0.9 % (0-2.0); EOS % 4.4 % (0-4.5); HEMATOCRIT 29.8 % (32.4-45.2); HEMOGLOBIN 10.3 GM/dl (10.7-15.3); LYMPH % 22.1 % (8-40); MCH 30.9 pg (25.7-33.7); MCHC 34.5 g/dl (32.0-36.0); MEAN CELL VOLUME 89.4 fl (80-96); MEAN PLT VOLUME 9.2 fl (7.5-11.1); MONO % 7.7 % (3.8-10.2); NEUT % 64.9 % (42.8-82.8); PLATELET COUNT 264 10^3/uL (134-434); RBC 3.33 M/mm3 (3.60-5.2); RDW 12.7 % (11.6-15.6); WHITE BLOOD COUNT 4.1 K/mm3 (4.0-10.8)
[2020-09-18 08:35] LABS: ALBUMIN 2.7 g/dl (3.4-5.0); BILIRUBIN,TOTAL 0.3 mg/dl (0.2-1); CALCIUM 8.2 mg/dl (8.5-10); CREATININE 0.7 mg/dl (0.55-1.3); MAGNESIUM 1.8 mg/dL (1.8-2.4); TOT PROT 5.5 g/dl (6.4-8.2)
[2020-09-18] MEDS: ENOXAPARIN NA (PORCINE) 40 MG/0.4 ML DISP.SYRIN SQ SCH (09:43)
[2020-09-18] MEDS: ARIPiprazole 10 MG TABLET PO SCH (09:43)
[2020-09-18] MEDS: FLUoxetine HCL 20 MG CAPSULE PO SCH (09:46)
[2020-09-18 09:48] VITALS: BP 113/63; PULSE 81; TEMP 98.6
[2020-09-19] MEDS ORDERED: chlordiazePOXIDE 5 MG CAPSULE PO SCH (05:00)
[2020-09-19] MEDS ORDERED: methaDONE HCL 10 MG TABLET (FOR DETOX USE ONLY) PO ONE (10:00)
[2020-09-20] MEDS ORDERED: chlordiazePOXIDE 5 MG CAPSULE PO ONE (05:00)
== END 2020-09-18 13:12 | disposition home or self-care (01) | DRG 603 ==
LOC: FER 13:00 → FM/S 14:55
PROVIDERS: ADMIT Internal Medicine; ATTEND Nurse Practitioner Acute Care
DX: L03.115 Cellulitis of right lower limb (principal); F11.20 Opioid dependence, uncomplicated; F32.9 Major depressive disorder, single episode, unspecified; G47.00 Insomnia, unspecified; D50.0 Iron deficiency anemia secondary to blood loss (chronic); R50.9 Fever, unspecified; F14.10 Cocaine abuse, uncomplicated; F10.20 Alcohol dependence, uncomplicated
CPT/HCPCS: 36415; 71045-TC-FY; 73590-TC-RT-FY; 73610-TC-RT-FY; 73630-TC-RT-FY; 80053; 80307; 81003; 81015; 83735; 84484; 84703; 85025; 87040; 87086; 93005; 97116-GP; 97161-GP; 99285-25; C9803; J0131; U0003; U0005

== ENCOUNTER 2020-10-04 00:33 | Emergency (ER) | payer BC, OTHER ==
[2020-10-04 00:52] VITALS: BP 139/96; PULSE 110; TEMP 99.3; BMI 20.7
== END 2020-10-04 00:57 | disposition home or self-care (01) ==
LOC: FER 00:33
DX: H10.9 Unspecified conjunctivitis (principal)
CPT/HCPCS: 99283-25

== ENCOUNTER 2020-12-19 22:24 | Inpatient (IN) | payer OTHER ==
[2020-12-20] MEDS ORDERED: MENTHOL/PHENOL 1 EACH UD MM PRN (01:13)
[2020-12-20] MEDS ORDERED: MAGNESIUM CITRATE 300 ML BOTTLE PO PRN (01:13)
[2020-12-20] MEDS ORDERED: ACETAMINOPHEN 325 MG TABLET (FP) PO PRN ×2 (01:13)
[2020-12-20] MEDS ORDERED: IBUPROFEN 400 MG TABLET (FP) PO PRN (01:13)
[2020-12-20] MEDS ORDERED: ONDANSETRON *ODT* 4 MG TABLET SL PRN (01:13)
[2020-12-20] MEDS ORDERED: MAGNESIUM HYDROX 2400MG/30ML ORAL SUSPENSION 30 ML CUP PO PRN (01:13)
[2020-12-20] MEDS ORDERED: MAG HYDROX/AL HYDROX/SIMETH 30 ML UNIT-DOSE CUP PO PRN (01:13)
[2020-12-20] MEDS ORDERED: BISMUTH SUBSALICYLATE 524 MG/30 ML PO PRN (01:13)
[2020-12-20 02:31] VITALS: BMI 19.6
[2020-12-20] MEDS: diazePAM 5 MG TABLET PO PRN (03:34)
[2020-12-20] MEDS: diazePAM 5 MG TABLET PO SCH ×4 (06:44→22:37)
[2020-12-20] MEDS: PRENATAL VITAMINS W/ FOLIC ACID TABLET (FP) PO SCH (09:56)
[2020-12-20] MEDS: METHOCARBAMOL 500 MG TABLET PO PRN (09:56)
[2020-12-20] MEDS: NICOTINE 14 MG/24 HOURS TOPICAL PATCH TD SCH (09:58)
[2020-12-20] MEDS: NICOTINE POLACRILEX 2 MG GUM BUC PRN (09:59)
[2020-12-20] MEDS: THIAMINE HCL 100 MG TABLET (FP) PO SCH (22:37)
[2020-12-20] MEDS: MELATONIN 5 MG TABLETS PO SCH (22:37)
[2020-12-21] MEDS: diazePAM 5 MG TABLET PO SCH ×3 (05:37→22:21)
[2020-12-21] MEDS: PRENATAL VITAMINS W/ FOLIC ACID TABLET (FP) PO SCH (10:27)
[2020-12-21] MEDS: NICOTINE 14 MG/24 HOURS TOPICAL PATCH TD SCH (10:28)
[2020-12-21] MEDS: NICOTINE POLACRILEX 2 MG GUM BUC PRN (10:49)
[2020-12-21] MEDS: MELATONIN 5 MG TABLETS PO SCH (22:20)
[2020-12-21] MEDS: THIAMINE HCL 100 MG TABLET (FP) PO SCH (22:20)
[2020-12-21] MEDS: METHOCARBAMOL 500 MG TABLET PO PRN (22:20)
[2020-12-22] MEDS: diazePAM 5 MG TABLET PO SCH ×2 (05:51→17:13)
[2020-12-22] MEDS: PRENATAL VITAMINS W/ FOLIC ACID TABLET (FP) PO SCH (10:43)
[2020-12-22] MEDS: NICOTINE 14 MG/24 HOURS TOPICAL PATCH TD SCH (10:44)
[2020-12-22 11:40] LABS: HEMATOCRIT 35.6 % (32.4-45.2); HEMOGLOBIN 12.4 GM/dL (10.7-15.3); MCH 29.6 pg (25.7-33.7); MCHC 34.8 g/dl (32.0-36.0); MEAN CELL VOLUME 84.9 fl (80-96); MEAN PLT VOLUME 8.2 fl (7.5-11.1); PLATELET COUNT 296 10^3/uL (134-434); RBC 4.19 M/mm3 (3.60-5.2); RDW 15.5 % (11.6-15.6); WHITE BLOOD COUNT 4.3 K/mm3 (4.0-10.0)
[2020-12-22 11:40] LABS: BLOOD UREA NITROGEN 11.8 mg/dL (7-18); CALCIUM 8.3 mg/dL (8.5-10.1)
[2020-12-22 11:41] LABS: ALBUMIN 2.8 g/dl (3.4-5.0)
[2020-12-22 11:44] LABS: CREATININE 0.6 mg/dL (0.55-1.3)
[2020-12-22 11:45] LABS: BILIRUBIN,TOTAL 0.2 mg/dL (0.2-1)
[2020-12-22 11:46] LABS: TOT PROT 6.2 g/dl (6.4-8.2)
[2020-12-22 12:35] LABS: HIV INTERPRETATION NEGATIVE (NEGATIVE)
[2020-12-22] MEDS: THIAMINE HCL 100 MG TABLET (FP) PO SCH (22:19)
[2020-12-22] MEDS: MELATONIN 5 MG TABLETS PO SCH (22:19)
[2020-12-22] MEDS: diazePAM 5 MG TABLET PO PRN (22:20)
[2020-12-22] MEDS: METHOCARBAMOL 500 MG TABLET PO PRN (22:20)
[2020-12-23] MEDS ORDERED: diazePAM 5 MG TABLET PO ONE (06:00)
[2020-12-23 09:51] VITALS: BP 119/66; PULSE 83; TEMP 97.6
== END 2020-12-23 09:55 | disposition home or self-care (01) | DRG 897 ==
LOC: YASAS 22:24 → Y6N 12-20 02:28
PROVIDERS: ADMIT Allergy & Immunology; ATTEND Allergy & Immunology
PROC: HZ2ZZZZ Detoxification Services for Substance Abuse Treatment (ICD-10-PCS; principal; 2020-12-20)
DX: F10.230 Alcohol dependence with withdrawal, uncomplicated (principal); F14.20 Cocaine dependence, uncomplicated; F17.213 Nicotine dependence, cigarettes, with withdrawal; F41.9 Anxiety disorder, unspecified; F32.A Depression, unspecified; F43.10 Post-traumatic stress disorder, unspecified; Z56.0 Unemployment, unspecified
CPT/HCPCS: 36415; 80053; 85027; 86780; 87389; 93005; 93010; C9803; U0003; U0005

== ENCOUNTER 2021-06-19 17:04 | Emergency (ER) | payer BC, OTHER ==
[2021-06-19 17:13] VITALS: BP 117/64; PULSE 88; TEMP 97.4; BMI 26.6
[2021-06-19] MEDS ORDERED: ACETAMINOPHEN 1000 MG/100 ML BAG IVPB ONE (17:49)
[2021-06-19] MEDS ORDERED: SODIUM CHLORIDE 1,000 ML IV STA (17:49)
[2021-06-19 18:15] LABS: HCG,QUALITATIVE URINE Negative
[2021-06-19 18:21] LABS: HEMATOCRIT 38.5 % (32.4-45.2); HEMOGLOBIN 13.3 G/dL (10.7-15.3); MCH 30.5 pg (25.7-33.7); MCHC 34.5 g/dl (32.0-36.0); MEAN CELL VOLUME 88.2 fl (80-96); MEAN PLT VOLUME 9.4 fl (7.5-11.1); PLATELET COUNT 244.4 10^3/uL (134-434); RBC 4.36 10^6/uL (3.60-5.2); RDW 14.2 % (11.6-15.6); WHITE BLOOD COUNT 10.3 10^3/uL (4.0-10.8)
[2021-06-19 18:27] LABS: ALBUMIN 4.2 g/dl (3.4-5.0); BILIRUBIN,TOTAL 0.8 mg/dl (0.2-1); TOT PROT 7.3 g/dl (6.4-8.2)
[2021-06-19 18:43] LABS: PLATELET ESTIMATE ADEQUATE
[2021-06-19] MEDS ORDERED: KETOROLAC TROMETHAMINE 30 MG/1 ML VIAL ONE (20:29)
[2021-06-19] MEDS ORDERED: KETOROLAC TROMETHAMINE 30 MG/1 ML VIAL IVPUSH ONE (20:30)
[2021-06-19] MEDS ORDERED: AZITHROMYCIN 250 MG TABLET PO ONE (21:41)
[2021-06-19] MEDS ORDERED: AZITHROMYCIN 250 MG TABLET ONE (21:45)
[2021-06-19 22:07] LABS: METHADONE, UR NEGATIVE (NEGATIVE); URINE AMPHETAMINES NEGATIVE (NEGATIVE); URINE BENZODIAZEPINES NEGATIVE (NEGATIVE)
[2021-06-19 22:08] LABS: COCAINE, UR NEGATIVE (NEGATIVE); OPIATES, URI NEGATIVE (NEGATIVE); PHENCYCLIDINE,URINE NEGATIVE (NEGATIVE); URINE BARBITURATES NEGATIVE (NEGATIVE)
== END 2021-06-19 22:00 | disposition left against medical advice (07) ==
LOC: FER 17:04
PROC: 3E033GC Introduction of Other Therapeutic Substance into Peripheral Vein, Percutaneous Approach (ICD-10-PCS; principal; 2021-06-19)
DX: R10.84 Generalized abdominal pain (principal)
CPT/HCPCS: 36415; 71045-TC-FY; 74177-TC; 80053; 80307; 81003; 83690; 84703; 85027; 87086; 93005; 99285-25; C9803-CS; Q9967; U0003; U0005

== ENCOUNTER 2021-12-10 13:25 | Emergency (ER) | payer BC, OTHER ==
[2021-12-10 13:53] VITALS: BMI 22.9
[2021-12-10 17:24] LABS: HEMATOCRIT 39.7 % (32.4-45.2); HEMOGLOBIN 13.8 G/dL (10.7-15.3); MCH 30.6 pg (25.7-33.7); MCHC 34.7 g/dl (32.0-36.0); MEAN CELL VOLUME 88.2 fl (80-96); MEAN PLT VOLUME 9.6 fl (7.5-11.1); PLATELET COUNT 244.5 10^3/uL (134-434); RDW 14.2 % (11.6-15.6)
[2021-12-10 17:38] LABS: ALBUMIN 4.2 g/dl (3.4-5.0); BILIRUBIN,TOTAL 0.4 mg/dl (0.2-1); CALCIUM 8.9 mg/dl (8.5-10); CREATININE 0.8 mg/dl (0.55-1.3); TOT PROT 7.3 g/dl (6.4-8.2)
[2021-12-10 18:22] LABS: PLATELET ESTIMATE ADEQUATE
[2021-12-10 20:04] VITALS: BP 110/70; PULSE 72; RESP 16; TEMP 98
== END 2021-12-10 20:54 | disposition home or self-care (01) ==
LOC: FER 13:25
DX: R79.1 Abnormal coagulation profile (principal)
CPT/HCPCS: 36415; 71275-TC; 80053; 81025; 85025; 93005; 99285-25; Q9967